=== PATIENT | male | born 1930 | race Caucasian/White ===

== ENCOUNTER → 2017-03-01 | Outpatient (REF) ==
[~2017-03-01] MED LIST: ASPIRIN E.C. 8181 MG PO; ATROVENT NASAL15 ML NS; CEFTIN500 MG PO; COLACE 100100 MG/CAP PO; CORDARONE200 MG PO; DULCOLAX10 MG RC; ELIQUIS 2.5 PO; FERROUS SU325 MG/TAB PO; FLEET ENEMA 13135 ML RC; KLOR-CON 1010 MEQ PO; LASIX40 MG PO; LEVOTHYROXIN0.025 MG PO; LEVOXYL0.125 MG PO; LORTAB 5/500 501 TAB PO; LOVASTATIN10 MG PO; MILK OF MA400 MG/51 PO; NATURE'S BLEND400 IU PO; NIACIN500 M3 PO; OCUVITE ADULT 51 SGL PO; OMEGA 31000 MG; OMNICEF 300MG300 MG PO; PACERONE200 MG PO; PRILOSEC 20MG20 MG PO; PROTONIX40 MG PO; STOOL SOFTENER100 M2 PO; TEMAZEPAM15 MG PO; VITAMIN C500 MG PO; ZETIA 10MG TAB10 MG PO; ZOFRAN4 M1 PO
== END ==
LOC: WSOH 10:50
DX: Z02.1 Encounter for pre-employment examination (principal)

== ENCOUNTER → 2017-03-04 | Outpatient (REF) | LOC: WSOH 14:54 | DX: Z02.1 Encounter for pre-employment examination (principal) ==

== ENCOUNTER → 2017-03-12 | Outpatient (REF) | LOC: WSOH 09:51 | DX: Z02.89 Encounter for other administrative examinations (principal) ==

== ENCOUNTER → 2017-04-24 | Outpatient (CLI) | payer MEDICARE | LOC: COL.RAD 09:41 | DX: I71.2 Thoracic aortic aneurysm, without rupture (principal); R91.1 Solitary pulmonary nodule | CPT/HCPCS: Q9967 ==

== ENCOUNTER → 2017-12-02 | Outpatient (REF) ==
[~2017-12-02] MED LIST changes: +B-121000 MCG PO; +COUMADIN 1010 MG/TAB PO; +COUMADIN 22.5 MG/TAB PO; +COUMADIN 5MG5 MG/TAB PO; +FLOMAX 0.40.4 MG/CAP PO; +FOLIC ACID 11 MG/TA1 PO; +GLUCOTROL10 MG PO; +JANTOVEN10 MG PO; +KRILL OIL 5001 EACH PO; +LASIX 20MG TABL20 MG PO; -LEVOXYL0.125 MG PO; +LEVOXYL0.15 MG PO; +ROXICODONE 55 MG/TAB PO; +THIAMINE 1100 MG/TAB PO; +TYLENOL 325MG325 MG PO; +VITAMIND3 5000 PO
[2017-12-02 08:32] LABS: MEAN CELL VOLUME 90 fl (80.0-100.0); MEAN CORPUSCULAR HGB CONC 32 g/dl (33.0-37.0); MEAN PLATELET VOLUME 9.9 fl (7.4-10.4); PLATELET COUNT 256 K/mm3 (130-400); RED BLOOD COUNT 2.79 M/mm3 (4.20-5.60); REDCELL DISTRIBUTION WIDTH-CV 16.7 % (11.5-14.5)
[2017-12-02 08:49] LABS: CREATININE, serum 0.55 mg/dL (0.66-1.25); POTASSIUM 3.8 mmol/L (3.4-5.0)
[2017-12-02 08:54] LABS: HEMATOCRIT 25.2 % (42.0-52.0); MEAN CORPUSCULAR HEMOGLOBIN 29 pg (27.0-31.0)
[2017-12-02 09:23] LABS: ANISOCYTOSIS 1+; BAND 11 % (0-10); EOSINOPHIL 1 % (0-4); LYMPHOCYTE 11 % (20.0-51.0); NEUTROPHILS 69 % (42.0-75.2); PLATELET ESTIMATE NORMAL (NORMAL); POLYCHROMASIA 1+
[2017-12-02 09:25] LABS: TOXIC GRANULATION PRESENT
== END ==
LOC: ZCOL.LAB 08:27
PROVIDERS: Internal Medicine
DX: Z01.89 Encounter for other specified special examinations (principal)

== ENCOUNTER → 2017-12-05 | Outpatient (CLI) | payer MEDICARE | LOC: COL.RAD 09:21 | DX: S72.402D Unspecified fracture of lower end of left femur, subsequent encounter for closed fracture with routine healing (principal); Z96.7 Presence of other bone and tendon implants ==

== ENCOUNTER → 2017-12-26 | Outpatient (REF) ==
[2017-12-26 02:43] LABS: COLLECTION METHOD CLEAN CATCH
[2017-12-26 02:46] LABS: BASO % 0.3 % (0.0-2.0); EOS # 0.1 (0.0-0.7); GRAN # 8.4 (1.4-6.5); GRAN % 73.8 % (42.2-75.2); HEMOGLOBIN 11.4 g/dl (13.5-18.0); LYMPH # 1.4 (1.2-3.4); LYMPH % 12.1 % (20.0-51.0); MEAN CELL VOLUME 91 fl (80.0-100.0); MEAN CORPUSCULAR HEMOGLOBIN 28 pg (27.0-31.0); MEAN CORPUSCULAR HGB CONC 31 g/dl (33.0-37.0); MEAN PLATELET VOLUME 10.8 fl (7.4-10.4); MONO # 1.4 (0.1-0.6); MONO % 12.3 % (1.7-9.3); PLATELET COUNT 169 K/mm3 (130-400); RED BLOOD COUNT 4.01 M/mm3 (4.20-5.60)
[2017-12-26 02:49] LABS: HEMATOCRIT 36.5 % (42.0-52.0)
[2017-12-26 02:55] LABS: ALBUMIN 2.9 gm/dL (3.5-5.0); BILIRUBIN,TOTAL 0.7 mg/dL (0.0-1.0); CALCIUM 8.7 mg/dL (8.4-10.2); CREATININE, serum 0.55 mg/dL (0.66-1.25); POTASSIUM 3.6 mmol/L (3.4-5.0); TOTAL PROTEIN 5.7 gm/dL (6.4-8.2)
[2017-12-26 03:06] LABS: MUCOUS Present /lpf; PH 5 (5-8); SQUAMOUS EPITHELIAL 0-2 /hpf; URINE APPEARANCE Hazy; URINE BACTERIA None Seen /hpf; URINE BILIRUBIN Negative (NEGATIVE); URINE BLOOD Negative (NEGATIVE); URINE CALCIUM OXALATE CRYSTAL Present /hpf; URINE COLOR Yellow; URINE GLUCOSE Negative (NEGATIVE); URINE KETONE Negative (NEGATIVE); URINE LEUKOCYTE ESTERASE Negative (NEGATIVE); URINE NITRATE Negative (NEGATIVE); URINE PROTEIN(semi-quant) 1+ (NEGATIVE); URINE UROBILINOGEN >=4.0 mg/dL (NEGATIVE)
== END ==
LOC: ZCOL.LAB 02:39
PROVIDERS: Internal Medicine
DX: M62.81 Muscle weakness (generalized) (principal); D64.9 Anemia, unspecified; R39.9 Unspecified symptoms and signs involving the genitourinary system

== ENCOUNTER → 2018-01-01 | Outpatient (CLI) | payer MEDICARE | LOC: COL.RAD 11:56 | DX: M97.12XA Periprosthetic fracture around internal prosthetic left knee joint, initial encounter (principal); J18.9 Pneumonia, unspecified organism; Z98.890 Other specified postprocedural states; Z96.651 Presence of right artificial knee joint; Z96.89 Presence of other specified functional implants ==

== ENCOUNTER → 2018-02-06 | Outpatient (CLI) | payer MEDICARE | LOC: COL.RAD 11:56 | DX: Z09 Encounter for follow-up examination after completed treatment for conditions other than malignant neoplasm (principal); M97.12XD Periprosthetic fracture around internal prosthetic left knee joint, subsequent encounter; Z98.890 Other specified postprocedural states ==

== ENCOUNTER → 2018-03-24 | Outpatient (CLI) | payer MEDICARE | LOC: COL.RAD 10:10 | DX: S72.492D Other fracture of lower end of left femur, subsequent encounter for closed fracture with routine healing (principal); Z98.890 Other specified postprocedural states ==

== ENCOUNTER → 2018-04-21 | Outpatient (CLI) | payer MEDICARE ==
[2018-04-21 09:47] LABS: BASO # 0.1 (0.0-0.2); BASO % 0.7 % (0.0-2.0); EOS # 0.3 (0.0-0.7); GRAN # 4.5 (1.4-6.5); GRAN % 66.4 % (42.2-75.2); HEMATOCRIT 37.2 % (42.0-52.0); HEMOGLOBIN 11.9 g/dl (13.5-18.0); LYMPH # 1.2 (1.2-3.4); MEAN CELL VOLUME 87 fl (80.0-100.0); MEAN CORPUSCULAR HEMOGLOBIN 28 pg (27.0-31.0); MEAN CORPUSCULAR HGB CONC 32 g/dl (33.0-37.0); MEAN PLATELET VOLUME 10.9 fl (7.4-10.4); MONO # 0.7 (0.1-0.6); MONO % 10.6 % (1.7-9.3); PLATELET COUNT 161 K/mm3 (130-400); RED BLOOD COUNT 4.26 M/mm3 (4.20-5.60); REDCELL DISTRIBUTION WIDTH-CV 14.7 % (11.5-14.5)
[2018-04-21 10:25] LABS: ALBUMIN 3.5 gm/dL (3.5-5.0); BILIRUBIN,TOTAL 0.7 mg/dL (0.0-1.0); CHOLESTEROL RISK RATIO 2.9; CREATININE, serum 0.6 mg/dL (0.66-1.25); POTASSIUM 3.1 mmol/L (3.4-5.0); TOTAL PROTEIN 6.5 gm/dL (6.4-8.2)
[2018-04-21 11:43] LABS: THYROID STIMULATING HORMONE 4.72 uIU/mL (0.465-4.680)
== END ==
LOC: ZCOL.LAB 09:39
PROVIDERS: Internal Medicine
DX: E11.59 Type 2 diabetes mellitus with other circulatory complications (principal); E03.9 Hypothyroidism, unspecified; E78.5 Hyperlipidemia, unspecified

== ENCOUNTER → 2018-05-01 | Outpatient (REF) | LOC: ZCOL.LAB 15:09 | DX: Z01.89 Encounter for other specified special examinations (principal) ==

== ENCOUNTER → 2018-05-12 | Outpatient (CLI) | payer MEDICARE ==
[2018-05-12 12:02] LABS: CALCIUM 9.5 mg/dL (8.4-10.2); CREATININE, serum 0.89 mg/dL (0.66-1.25)
== END ==
LOC: ZCOL.LAB 11:37
PROVIDERS: Internal Medicine
DX: E87.6 Hypokalemia (principal)

== ENCOUNTER → 2018-05-19 | Outpatient (CLI) | payer MEDICARE | LOC: COL.RAD 14:47 | DX: M97.8XXA Periprosthetic fracture around other internal prosthetic joint, initial encounter (principal); Z98.890 Other specified postprocedural states ==

== ENCOUNTER → 2018-06-26 | Outpatient (CLI) | payer MEDICARE | LOC: COL.RAD 12:31 | DX: M97.8XXD Periprosthetic fracture around other internal prosthetic joint, subsequent encounter (principal); Z96.642 Presence of left artificial hip joint ==

== ENCOUNTER 2018-07-04 16:47 | Inpatient (IN) | payer MEDICARE ==
[2018-07-04] VITALS (149 sets, daily range): BP systolic 118–143; BP diastolic 62–97; PULSE 84–127; TEMP 98–98.2; O2SAT 89–95
[~2018-07-04] VITALS: Ht 190.5 cm; Wt 126.7 kg
[~2018-07-04 16:47] MED LIST changes: -COUMADIN4 MG PO; -DESYREL 50MG50 MG PO; -FISH OIL 1000MG1 CAP PO; -K-DUR20 MEQ PO; -MELATONIN5 M1 PO; -MIRALAX119G PO; -OCUVITE1 TA1 PO; -TYLENOL 500MG500 MG PO; -ZOLOFT 50MG50 MG PO
[2018-07-04 17:56] LABS: INR 2.5 (0.8-3.0); PROTHROMBIN TIME 27.9 SECONDS (9.7-12.8)
[2018-07-04 17:59] LABS: PARTIAL THROMBOPLASTIN TIME 37.7 SECONDS (26.0-37.0)
[2018-07-04 18:02] LABS: ALBUMIN 3.5 gm/dL (3.5-5.0); BILIRUBIN,TOTAL 0.9 mg/dL (0.0-1.0); CALCIUM 8.9 mg/dL (8.4-10.2); CREATININE, serum 0.7 mg/dL (0.66-1.25); POTASSIUM 4.3 mmol/L (3.4-5.0); TOTAL PROTEIN 6.7 gm/dL (6.4-8.2)
[2018-07-04 18:49] LABS: COLLECTION METHOD CATHETER
[2018-07-04 19:08] LABS: MUCOUS Present /lpf; PH 5 (5-8); SQUAMOUS EPITHELIAL 0-2 /hpf; URINE APPEARANCE Cloudy; URINE BACTERIA Rare /hpf; URINE BILIRUBIN Negative (NEGATIVE); URINE BLOOD 1+ (NEGATIVE); URINE COLOR Amber; URINE GLUCOSE Negative (NEGATIVE); URINE KETONE Negative (NEGATIVE); URINE LEUKOCYTE ESTERASE 3+ (NEGATIVE); URINE NITRATE Positive (NEGATIVE); URINE PROTEIN(semi-quant) 2+ (NEGATIVE); URINE UROBILINOGEN >=4.0 mg/dL (NEGATIVE)
[2018-07-04] MEDS ORDERED: MIRALAX119G PO (19:56)
[2018-07-04] MEDS ORDERED: MELATONIN5 M1 PO (19:58)
[2018-07-04] MEDS ORDERED: OCUVITE ADULT 51 SGL PO (19:59)
[2018-07-04] MEDS ORDERED: ZOLOFT 50MG50 MG PO (20:01)
[2018-07-04] MEDS ORDERED: K-DUR20 MEQ PO (20:01)
[2018-07-04] MEDS ORDERED: DESYREL 50MG50 MG PO (20:02)
--- NOTE | 2018-07-04 20:53 | NUR ---
Patient arrived to ICU room 7 via MARCO Zacarias RN. Patient transported from bed to bed with assistance from staff. Patient unable to communicate effectively. out in waiting room, will assume care of patient at this time.
[2018-07-04] MEDS ORDERED: COUMADIN4 MG PO (22:22)
[2018-07-04] MEDS ORDERED: OCUVITE1 TA1 PO (22:30)
[2018-07-04] MEDS ORDERED: FISH OIL 1000MG1 CAP PO (22:31)
[2018-07-04] MEDS ORDERED: TYLENOL 500MG500 MG PO (22:33)
[2018-07-05] VITALS (313 sets, daily range): BP systolic 102–141; BP diastolic 49–72; PULSE 66–87; TEMP 97.6–99.1; O2SAT 56–100
[2018-07-05 01:02] LABS: TROPONIN-I 0.019 ng/mL (0.000-0.034)
[2018-07-05 01:21] LABS: THYROID STIMULATING HORMONE 4.94 uIU/mL (0.465-4.680)
--- NOTE | 2018-07-05 01:25 | NUR ---
Patient appears to be in pain, does have some discomfort in left knee. Medication giving shortly after.
--- NOTE | 2018-07-05 03:38 | NUR ---
WHEN ASKING WHETHER THEY SLEEP WITH A CPAP OR BIPAP, PT WAS CONFUSED AND UNABLE TO ANSWER. ASKED PT MULTIPLE TIMES IN DIFFERENT WAYS AND WAS STILL CONFUSED AND UNABLE TO ANSWER. THEREFORE, PT WAS PLACED ON 3 LPM OM DUE TO DROP IN 02 SATS DURING DEEP SLEEP. WILL CONTINUE TO MONITOR AND ASK FAMILY/PT TOMORROW DURING DAY WHAT THEY WEAR AT NIGHT AND WHETHER THEY WILL WANT TO WEAR WHILE IN HOSPITAL. PT IS DOING FINE AT THIS TIME WITH NO DISTRESS NOTED.
[2018-07-05 05:15] LABS: BASO % 0.1 % (0.0-2.0); EOS % 0.3 % (0-4.0); GRAN # 8.6 (1.4-6.5); GRAN % 75.5 % (42.2-75.2); LYMPH # 1.2 (1.2-3.4); LYMPH % 10.3 % (20.0-51.0); MEAN CELL VOLUME 87 fl (80.0-100.0); MEAN CORPUSCULAR HGB CONC 32 g/dl (33.0-37.0); MEAN PLATELET VOLUME 9.7 fl (7.4-10.4); MONO # 1.5 (0.1-0.6); MONO % 12.8 % (1.7-9.3); PLATELET COUNT 143 K/mm3 (130-400); RED BLOOD COUNT 3.19 M/mm3 (4.20-5.60); REDCELL DISTRIBUTION WIDTH-CV 15.9 % (11.5-14.5)
[2018-07-05 05:18] LABS: HEMATOCRIT 27.8 % (42.0-52.0); HEMOGLOBIN 8.8 g/dl (13.5-18.0); MEAN CORPUSCULAR HEMOGLOBIN 28 pg (27.0-31.0)
[2018-07-05 05:27] LABS: ALBUMIN 2.9 gm/dL (3.5-5.0); BILIRUBIN,TOTAL 0.9 mg/dL (0.0-1.0); CALCIUM 8.6 mg/dL (8.4-10.2); CREATININE, serum 0.65 mg/dL (0.66-1.25); INR 2.2 (0.8-3.0); POTASSIUM 3.7 mmol/L (3.4-5.0); PROTHROMBIN TIME 24.8 SECONDS (9.7-12.8); TOTAL PROTEIN 5.9 gm/dL (6.4-8.2)
--- NOTE | 2018-07-05 07:00 | NUR ---
BEDSIDE REPORT RECEIVED FROM REMEDIOS WATTS
--- NOTE | 2018-07-05 09:00 | NUR ---
DR. ISSA HERE TO SEE PATIENT.
--- NOTE | 2018-07-05 10:57 | NUR ---
Pt arrived to room 354 via bed with REMEDIOS Gonsales. Pt and oriented to room and call light system. Pt is resting quietly in the bed and he denies further need. Call light within reach, will continue to monitor.
--- NOTE | 2018-07-05 11:05 | NUR ---
REPORT CALLED TO REMEDIOS ANGEL. PATIENT TAKEN TO ROOM 354. NEW IV PLACED IN LEFT FOREARM. SKIN ISSUES EVALUATED TOGETHER AT BEDSIDE. CARE TURNED OVER AT THIS TIME.
--- NOTE | 2018-07-05 17:43 | NUR ---
Pt pulled out canseco catheter at this time with the balloon intact. Dr. Gaines notified.
--- NOTE | 2018-07-05 18:36 | NUR ---
Since arriving to the floor the pt has been resting on and off. Pulled out his canseco with the balloon intact. has remained at the bedside; all questions answered. Pt is sitting up in the bed eating his dinner at this time and he denies further needs. Call light within reach.
--- NOTE | 2018-07-05 18:59 | NUR ---
Report given to REMEDIOS Morales.
--- NOTE | 2018-07-05 21:09 | NUR ---
Resting in bed. Assessment complete. Alert, partially orientated. Lungs clear. Bilateral lower extremity edema +1. Left heel abrasion, covered with bandaide. Left knee erythema present. Left flank large bruise. Denies pain. Denies other needs at this time. Call light in reach. Bed alarm in place. Will monitor.
[2018-07-06] VITALS (7 sets, daily range): BP systolic 95–159; BP diastolic 44–73; PULSE 58–74; TEMP 97.6–98.8
--- NOTE | 2018-07-06 00:54 | NUR ---
Resting in bed asleep. Call light in reach.
--- NOTE | 2018-07-06 00:57 | NUR ---
NO CPAP/BIPAP IN ROOM. PT FAMILY DID NOT BRING IN HOME UNIT. PT IS STILL CONFUSED AND NOT ABLE TO WEAR CPAP/BIPAP AT THIS TIME.
--- NOTE | 2018-07-06 04:29 | NUR ---
Resting in bed. Denies needs. Call light in reach.
--- NOTE | 2018-07-06 06:21 | NUR ---
Had uneventful night. Resting in bed this AM. Denies needs at this time. Call light in reach.
--- NOTE | 2018-07-06 08:30 | NUR ---
pT is alert, oriented to time and self but not place. Introduced the IV pole as his Maria C. Physical assessment completed. IV to LFA free of redness/swelling. Left knee is warm to touch, slightly reddened, outline is marked with marker. pt denies SOB, pain, femains afebrile. no furtehr needs, call light in reach
[2018-07-06 08:54] LABS: BASO % 0.3 % (0.0-2.0); EOS # 0.1 (0.0-0.7); GRAN # 8.6 (1.4-6.5); GRAN % 78.1 % (42.2-75.2); MEAN CELL VOLUME 88 fl (80.0-100.0); MEAN CORPUSCULAR HGB CONC 32 g/dl (33.0-37.0); MEAN PLATELET VOLUME 10.6 fl (7.4-10.4); MONO # 1.2 (0.1-0.6); MONO % 10.6 % (1.7-9.3); PLATELET COUNT 168 K/mm3 (130-400); RED BLOOD COUNT 3.27 M/mm3 (4.20-5.60); REDCELL DISTRIBUTION WIDTH-CV 15.8 % (11.5-14.5)
[2018-07-06 08:57] LABS: HEMATOCRIT 28.9 % (42.0-52.0); HEMOGLOBIN 9.1 g/dl (13.5-18.0); MEAN CORPUSCULAR HEMOGLOBIN 28 pg (27.0-31.0)
[2018-07-06 09:00] LABS: INR 1.7 (0.8-3.0); PROTHROMBIN TIME 19.5 SECONDS (9.7-12.8)
[2018-07-06 09:05] LABS: CALCIUM 8.8 mg/dL (8.4-10.2); CREATININE, serum 0.59 mg/dL (0.66-1.25); POTASSIUM 3.4 mmol/L (3.4-5.0)
[2018-07-06 09:20] LABS: C-REACTIVE PROTEIN 19.1 mg/dL (0.0-0.9)
--- NOTE | 2018-07-06 09:30 | NUR ---
This RN at bedside when Dr Dawson performed aspiration of fluid in knee. This RN provided tylenol per request after. Call light in reach, now at bedside
[2018-07-06 09:32] LABS: ERYTHROCYTE SEDIMENTATION RATE 52 mm/hr (0-30)
[2018-07-06 11:15] LABS: SYNOVIAL FL. MONONUCLEAR 4.4 % (0-75); SYNOVIAL FLUID APPEARANCE TURBID; SYNOVIAL FLUID COLOR PINK; SYNOVIAL FLUID RBC 47000 /mm3 (0-0); SYNOVIAL FLUID WBC 117894 /mm3 (200-600)
[2018-07-06 12:09] LABS: PARTIAL THROMBOPLASTIN TIME 33.2 SECONDS (26.0-37.0)
--- NOTE | 2018-07-06 16:45 | NUR ---
pT had uneventful shift. vitals remain stable, pt in Afib on tele. pt had no further complaints of pain, lt knee has no icnrease in redness or swelling. IV site free of redness, swelling, fluids infusing. This RN ordered dinner for later per pt request. Call light in reach
--- NOTE | 2018-07-06 17:39 | NUR ---
pT HAD uneventful day, vitals stable with pt remaining in Afib, heparin drip running, IV s redness/swelling at site. Pt voided adn received linen change. Pt remained alert and pleasantly disoriented, cooperative through day. No c/o Lt knee pain. Call light in reach, no further needs
--- NOTE | 2018-07-06 18:55 | NUR ---
rEPORT GIVEN TO Darren WHITTAKER, pt sitting up, ate dinner, at bedside, denies needs, call ligth in reach
--- NOTE | 2018-07-06 20:13 | NUR ---
Pt resting in bed watching TV, shift assessments complete, left Pt call light in reach, bed in lowest position.
[2018-07-06 20:33] LABS: INR 1.7 (0.8-3.0); PROTHROMBIN TIME 19.4 SECONDS (9.7-12.8)
[2018-07-07 00:11] VITALS: BP 131/71; PULSE 71; TEMP 98.7
[2018-07-07 01:09] LABS: INR 1.8 (0.8-3.0); PROTHROMBIN TIME 19.9 SECONDS (9.7-12.8)
[2018-07-07 03:51] VITALS: BP 135/66; PULSE 79; TEMP 97.4
--- NOTE | 2018-07-07 05:38 | NUR ---
Pt did not sleep much during the night, he did have several instances of incontinence during the night. no C/O pain during the night, Vs have been stable.
[2018-07-07 07:42] VITALS: BP 119/63; PULSE 76; TEMP 97.9
[2018-07-07 07:58] LABS: BASO % 0.3 % (0.0-2.0); EOS # 0.3 (0.0-0.7); EOS % 2.5 % (0-4.0); GRAN # 7.5 (1.4-6.5); GRAN % 73.9 % (42.2-75.2); LYMPH # 1.2 (1.2-3.4); MEAN CELL VOLUME 88 fl (80.0-100.0); MEAN CORPUSCULAR HGB CONC 31 g/dl (33.0-37.0); MEAN PLATELET VOLUME 10.6 fl (7.4-10.4); MONO % 10.1 % (1.7-9.3); PLATELET COUNT 173 K/mm3 (130-400); RED BLOOD COUNT 3.32 M/mm3 (4.20-5.60); REDCELL DISTRIBUTION WIDTH-CV 15.5 % (11.5-14.5)
[2018-07-07 08:02] LABS: HEMATOCRIT 29.1 % (42.0-52.0); HEMOGLOBIN 9.1 g/dl (13.5-18.0); MEAN CORPUSCULAR HEMOGLOBIN 27 pg (27.0-31.0)
[2018-07-07 08:07] LABS: CALCIUM 8.7 mg/dL (8.4-10.2); CREATININE, serum 0.58 mg/dL (0.66-1.25); POTASSIUM 3.5 mmol/L (3.4-5.0)
[2018-07-07 08:21] LABS: INR 1.8 (0.8-3.0)
--- NOTE | 2018-07-07 10:20 | NUR ---
pT IS alert, pleasant, disoriented to place and situation. Denies pain and SOB. when he moves left knee he will wince, but he refused additional tylenol. Physical assessment completed. Lt knee is warm to touch but very little redness of the skin. Pt afebrile, vitasl stable, remains in Afib rate controlled. [facility], continuing to monitor
[2018-07-07 12:21] VITALS: BP 110/53; PULSE 43; TEMP 98.3
--- NOTE | 2018-07-07 14:12 | NUR ---
JUDE contacted the patient's , Juliet, to discuss discharge plan. The patient resides at [facility] for long-term care. The patient's reports that she would like for the patient to return back there upon discharge. JUDE has contacted and faxed updates to Lizeth at [facility]. JUDE to continue to follow.
--- NOTE | 2018-07-07 14:15 | NUR ---
PAUSED HEPARIN PER LAB REQUEST
[2018-07-07 15:37] VITALS: BP 125/77; PULSE 75; TEMP 97.8
--- NOTE | 2018-07-07 18:41 | NUR ---
Report given to Carmen RN, pt resting, lab in room
[2018-07-07 19:53] VITALS: BP 132/70; PULSE 76; TEMP 97.6
--- NOTE | 2018-07-07 20:48 | NUR ---
Resting in bed. Assessment complete. Lungs clear. Alert and partially orientated to place and self. Bilateral lower leg edema present +2. Denies pain at this time. Ramon wrap present to left knee. Area warm to touch, denies pain when touched. Denies needs. Will monitor.
[2018-07-08 00:16] VITALS: BP 121/59; PULSE 62; TEMP 98.1
--- NOTE | 2018-07-08 00:45 | NUR ---
Resting in bed. Incontinent of urine. Care provided. Denies needs. Call light in reach.
[2018-07-08 03:59] VITALS: BP 130/69; PULSE 65; TEMP 98.1
--- NOTE | 2018-07-08 04:03 | NUR ---
Patient noted to have wheezing on expiration. Oxygen saturation 92-94% on room air. Reports some difficulty breathing. Obtained order for PRN breathing treatment from [facility]. Respiratory notifed and will be in to see patient. Patient denies other needs. Call light in reach.
--- NOTE | 2018-07-08 04:10 | NUR ---
Resting in bed. Incontinent of urine. Care provided and repositioned. Denies needs. Call light in reach.
--- NOTE | 2018-07-08 06:13 | NUR ---
Uneventful night. Resting in bed asleep. Call light in reach. Bed alarm in place.
[2018-07-08 07:29] LABS: BASO % 0.4 % (0.0-2.0); EOS # 0.3 (0.0-0.7); EOS % 3.1 % (0-4.0); GRAN # 5.8 (1.4-6.5); GRAN % 70.4 % (42.2-75.2); LYMPH # 1.1 (1.2-3.4); LYMPH % 13.6 % (20.0-51.0); MEAN CELL VOLUME 87 fl (80.0-100.0); MEAN CORPUSCULAR HGB CONC 32 g/dl (33.0-37.0); MEAN PLATELET VOLUME 10.7 fl (7.4-10.4); MONO # 0.9 (0.1-0.6); MONO % 10.9 % (1.7-9.3); PLATELET COUNT 186 K/mm3 (130-400); RED BLOOD COUNT 3.12 M/mm3 (4.20-5.60); REDCELL DISTRIBUTION WIDTH-CV 15.4 % (11.5-14.5)
[2018-07-08 07:33] LABS: INR 1.4 (0.8-3.0); PROTHROMBIN TIME 16.1 SECONDS (9.7-12.8)
[2018-07-08 07:35] VITALS: BP 139/65; PULSE 59; TEMP 97.6
[2018-07-08 07:35] LABS: HEMATOCRIT 27.1 % (42.0-52.0); HEMOGLOBIN 8.6 g/dl (13.5-18.0); MEAN CORPUSCULAR HEMOGLOBIN 28 pg (27.0-31.0)
[2018-07-08 07:36] LABS: CALCIUM 8.3 mg/dL (8.4-10.2); CREATININE, serum 0.62 mg/dL (0.66-1.25); POTASSIUM 3.3 mmol/L (3.4-5.0)
--- NOTE | 2018-07-08 08:25 | NUR ---
PT is A+Ox3, pleasant, denies pain but winces with movement of his left knee. Meds provided, physical assessmetn completed. Lt knee is moderately swollen, warm to touch, not significantly reddened, elevated on pillow. IV to LFA s redness/swelling at site. Call light inr each, bed low, will monitor
[2018-07-08 11:34] VITALS: BP 122/70; PULSE 69; TEMP 97.6
[2018-07-08 14:49] VITALS: BP 125/59; PULSE 87; TEMP 98
--- NOTE | 2018-07-08 18:39 | NUR ---
rEPORT GIVE TO Carmen WHITTAKER, pt resting, this Rn with aid just cleaned his wet breif, dinner is ordered on its way. No furtehr eneds
--- NOTE | 2018-07-08 19:18 | NUR ---
pt had uneventful day, pain meds provided once per orders, knee elevated through day. Pt repositioned and changed of wet breif through day, no skin breakdwon present. Heparin infusing per orders, both IV's to LFA s redness/swelling. Fluids infusing. Vitals stable, pt in afib on tele, asymptomatic. Call light in reach, bed low.
--- NOTE | 2018-07-08 19:23 | NUR ---
Report received from REMEDIOS Barahona. Resting in bed. Denies needs. Call light in reach.
--- NOTE | 2018-07-08 19:35 | NUR ---
Resting in bed. Assessment complete. Orientated to self. Assessment complete. Lungs clear. Bilateral lower leg edema +2 present. Denies pain at this time. Denies needs. Dinner set up for patient. Call light in reach. Bed alarm in place.
[2018-07-08 19:37] VITALS: BP 149/68; PULSE 84; TEMP 98.4
--- NOTE | 2018-07-08 21:45 | NUR ---
Repositioned patient. Incontinent of urine. Care provided. Confuse present on time of surgery. Concerned surgery is taking place at midnight. Reorientated patient. Denies needs. Call light in reach.
[2018-07-09] VITALS (11 sets, daily range): BP systolic 113–169; BP diastolic 63–95; PULSE 68–128; TEMP 97.7–98.6
--- NOTE | 2018-07-09 00:10 | NUR ---
Resting in bed. Repositioned. Incontinent care provided. Call light in reach.
--- NOTE | 2018-07-09 02:56 | NUR ---
Resting in bed. Repositioned. Denies needs. Call light in reach.
--- NOTE | 2018-07-09 05:02 | NUR ---
Heparin drip stopped as ordered prior to surgery.
--- NOTE | 2018-07-09 05:26 | NUR ---
Repositioned. Incontinent of urine. Denies needs. Call light in reach.
[2018-07-09 07:21] LABS: INR 1.2 (0.8-3.0); PROTHROMBIN TIME 14.1 SECONDS (9.7-12.8)
[2018-07-09 07:28] LABS: CALCIUM 8.3 mg/dL (8.4-10.2); CREATININE, serum 0.54 mg/dL (0.66-1.25); MEAN CELL VOLUME 88 fl (80.0-100.0); MEAN CORPUSCULAR HGB CONC 32 g/dl (33.0-37.0); MEAN PLATELET VOLUME 10.9 fl (7.4-10.4); PLATELET COUNT 229 K/mm3 (130-400); POTASSIUM 3.5 mmol/L (3.4-5.0); RED BLOOD COUNT 3.27 M/mm3 (4.20-5.60); REDCELL DISTRIBUTION WIDTH-CV 15.6 % (11.5-14.5)
[2018-07-09 07:48] LABS: HEMATOCRIT 28.6 % (42.0-52.0); MEAN CORPUSCULAR HEMOGLOBIN 28 pg (27.0-31.0)
--- NOTE | 2018-07-09 09:42 | NUR ---
Pt assessment complete. Pt laying in bed upon entry, he is A/O to person only. Reoriented easily. Pt reports pain to L knee with movement, knee slightly swollen, elevated on pillow. Pt incontinent of urine, pericare provided. Pt took am pills without complications. Pt aware that he will be having a procedure at noon. Isolation precautions followed, call light in reach, bed alarm on. Will continue to monitor.
--- NOTE | 2018-07-09 10:33 | NUR ---
JUDE attended clinical rounds. The patient is to have surgery today, 07/09. JUDE has contacted and faxed updates to Afsaneh at [facility] and will continue to follow.
--- NOTE | 2018-07-09 10:51 | NUR ---
Preop fluids hung, at bedside. POC discussed with both patient and . Pt's breathing is audibly wheezy, request to RT for breathing treatment.
--- NOTE | 2018-07-09 12:17 | NUR ---
Report called to Anesthesia at this time, Sourav in to wheel pt to OR.
--- NOTE | 2018-07-09 12:21 | NUR ---
Report called to REMEDIOS Vasquez on surgical. Pt will transfer to room 325 after procedure.
[2018-07-09 13:17] LABS: BAND 8 % (0-10); EOSINOPHIL 3 % (0-4); LYMPHOCYTE 18 % (20.0-51.0); NEUTROPHILS 65 % (42.0-75.2); PLATELET ESTIMATE NORMAL (NORMAL)
[2018-07-09 13:18] LABS: HYPOCHROMIA 3+
[2018-07-09 13:19] LABS: ANISOCYTOSIS 1+; POLYCHROMASIA 1+
--- NOTE | 2018-07-09 16:22 | NUR ---
PT TO ROOM 325 PER BED WITH ALISA WHITTAKER REPORTING @ BEDSIDE. PT TURNED TO SIDE DRAW SHEET REMOVED. LUNGS SOUNDS COARSE. BOWEL SOUNDS ACTIVE. DRESSING TO LEFT KNEE CDI WITH OCCLUSIVE ISABELL WRAP OVER INCISION SITE. SCD PLACED ON NON OPERATIVE LEG.
--- NOTE | 2018-07-09 16:38 | NUR ---
PT UNABLE TO MAINTAIN SATS ABOVE 90 % PLACED ON 4L P/NC STABLE AT 97%
[2018-07-09 17:37] LABS: PARTIAL THROMBOPLASTIN TIME 28.9 SECONDS (26.0-37.0)
--- NOTE | 2018-07-09 18:34 | NUR ---
SPOKE WITH NATHAN PHARMACIST AND WILL RUN THE VANC FIRST THEN START HEPARIN DRIP WHEN COMPLETE.
--- NOTE | 2018-07-09 19:14 | NUR ---
REPORT TO JOAN WHITTAKER
--- NOTE | 2018-07-09 21:00 | NUR ---
Pt. laying in bed with eyes closed, respirations equal and unlabored. Pt. arouses to verbal stimuli. Pt. is alert and confused. Shift assessment complete. IV to lt. forearm patent. IV fluids infusing per orders. Pt. denies pain or other needs, call light within reach, bed alarm on.
[2018-07-10 00:07] VITALS: BP 131/68; PULSE 102; TEMP 99.5
[2018-07-10 04:22] VITALS: BP 131/60; PULSE 102; TEMP 99.6
[2018-07-10 05:28] LABS: INR 1.3 (0.8-3.0); PROTHROMBIN TIME 15.3 SECONDS (9.7-12.8)
[2018-07-10 05:34] LABS: CALCIUM 8.2 mg/dL (8.4-10.2); CREATININE, serum 0.58 mg/dL (0.66-1.25); POTASSIUM 3.3 mmol/L (3.4-5.0)
--- NOTE | 2018-07-10 06:32 | NUR ---
Pt. slept well through the night. Pt. remains alert and confused. Pt. denies pain. Call light within reach, bed alarm on.
[2018-07-10 07:51] VITALS: BP 118/82; PULSE 75; TEMP 97.5
--- NOTE | 2018-07-10 08:00 | NUR ---
PATIENT IS DROWSY THIS MORNING, BUT AROUSES EASILY TO NAME. PATIENT IS A&O TO SELF ONLY. IRREGULAR HEART RHYTHM NOTED, OTHERWISE VSS. TELE IN PLACE. BOWEL SOUNDS ACTIVE ALL FOUR QUADRANTS. PATIENT TOLERATING FOOD & LIQUIDS WITHOUT ANY COMPLAINTS OF N/V. DYSPNEA WITH EXERTION NOTED. ALL LUNG MARTINEZ DIMINISHED UPON AUSCULTATION. PATIENT HAS A PRODUCTIVE COUGH WITH SCANT AMOUNTS OF STICKY CLEAR SPUTUM. POSITIVE PEDAL PULSES EQUAL BILATERALLY. 1+ PITTING-EDEMA TO BLE NOTED. SCD'S TO RLE. DRESSING AND ISABELL WRAP TO LLE IS CD&I. NON-PITTING EDEMA TO BUE. MARSHALL CATHETER TO DEPENDENT DRAINAGE WITH MODERATE AMOUNTS OF CLOUDY WINTER URINE PRESENT IN MARSHALL BAG. IV FLUIDS INFUSING TO LEFT FOREARM IV VIA PUMP. CALL LIGHT WITHIN REACH. BREAKFAST TRAY ORDERED FOR PATIENT. NO OTHER NEEDS AT THIS TIME.
--- NOTE | 2018-07-10 11:04 | NUR ---
Patient is going to need 6 weeks of IV antibiotics. JUDE called Afsaneh at [facility] and updated on patients status.
--- NOTE | 2018-07-10 12:00 | NUR ---
INSULIN HELD. PATIENT BLOOD SUGAR TAKEN AFTER MEAL.
[2018-07-10 12:37] VITALS: BP 127/65; PULSE 75; TEMP 97.9
[2018-07-10 16:00] VITALS: BP 1298/72; PULSE 86; TEMP 98
--- NOTE | 2018-07-10 19:42 | NUR ---
REPORT GIVEN TO REMEDIOS CHRISTIANSON.
--- NOTE | 2018-07-10 20:09 | NUR ---
Pt resting in bed napping, shift assessments complete W/O significant findings, no C/O pain at this time, left Pt bed in lowest position, call light in reach.
[2018-07-10 23:19] VITALS: BP 144/61; PULSE 71; TEMP 98.2
[2018-07-11 03:24] VITALS: BP 158/66; PULSE 88; TEMP 98.5
--- NOTE | 2018-07-11 05:16 | NUR ---
Pt slept well during the night, he has no C/O pain during the night, he did use his BIPAP while sleeping, VS have been stable.
[2018-07-11 05:17] LABS: MEAN CELL VOLUME 86 fl (80.0-100.0); MEAN CORPUSCULAR HGB CONC 32 g/dl (33.0-37.0); MEAN PLATELET VOLUME 10.2 fl (7.4-10.4); PLATELET COUNT 206 K/mm3 (130-400); RED BLOOD COUNT 3.03 M/mm3 (4.20-5.60); REDCELL DISTRIBUTION WIDTH-CV 15.8 % (11.5-14.5)
[2018-07-11 05:18] LABS: HEMATOCRIT 25.9 % (42.0-52.0); HEMOGLOBIN 8.4 g/dl (13.5-18.0); MEAN CORPUSCULAR HEMOGLOBIN 28 pg (27.0-31.0)
[2018-07-11 05:21] LABS: INR 1.4 (0.8-3.0); PROTHROMBIN TIME 16.4 SECONDS (9.7-12.8)
[2018-07-11 05:26] LABS: CALCIUM 8.5 mg/dL (8.4-10.2); CREATININE, serum 0.57 mg/dL (0.66-1.25); POTASSIUM 3.5 mmol/L (3.4-5.0)
[2018-07-11 07:07] VITALS: BP 139/69; PULSE 81; TEMP 98.7
--- NOTE | 2018-07-11 09:30 | NUR ---
PICC intact right upper arm. With sterile technique right upper arm PICC dressing change done with insertion site cleansed with ChloraPrep 1, cause removed with no drainage noted, skin prep, StatLock, and Tegaderm applied. With her symptoms of IV complications noted. Patient addressed no concerns. Infusion complete and lumen flushed with 10 mL normal saline without resistance or difficulty with good blood return noted.
--- NOTE | 2018-07-11 09:49 | NUR ---
JUDE met with patient during clinical rounding. Patient could possibly dc today to [facility] however the dr would like a few more tests done. JUDE updated Sondra at [facility] about patients status and IV antibiotics. JUDE will continue to follow.
[2018-07-11 11:27] VITALS: BP 136/66; PULSE 84; TEMP 98.4
[2018-07-11 16:07] VITALS: BP 130/63; PULSE 67; TEMP 98
[2018-07-11 18:55] VITALS: BP 136/67; PULSE 92; TEMP 98.2
--- NOTE | 2018-07-11 19:16 | NUR ---
REPORT GIVEN TO KRISTINE GRAY.
--- NOTE | 2018-07-11 20:00 | NUR ---
Patient resting in bed at this time. Patient is alert and oriented to self. Patient is confused and requires reorientation periodically, reorients easily. Rick catheter in place draining clear yellow urine. Bulky dressing to left leg in place, dressing appears CDI. CMS intact in operative extremity. Telemetry in place per order. Patient denies pain or further needs, call light within reach.
[2018-07-12 04:19] VITALS: BP 94/74; PULSE 71; TEMP 98.2
--- NOTE | 2018-07-12 05:15 | NUR ---
Patient rested well overnight. Rick catheter remians in place draining clear yellow urine. Patient has continued to deny pain and has given no indication of pain. Call light within reach, bed alarm on.
[2018-07-12 06:10] LABS: INR 1.4 (0.8-3.0); PROTHROMBIN TIME 15.8 SECONDS (9.7-12.8)
[2018-07-12 06:14] LABS: CALCIUM 8.5 mg/dL (8.4-10.2); CREATININE, serum 0.64 mg/dL (0.66-1.25); MAGNESIUM 2.1 mg/dL (1.6-2.3); POTASSIUM 3.5 mmol/L (3.4-5.0)
[2018-07-12 08:30] VITALS: BP 155/87; PULSE 75; TEMP 98
[2018-07-12] MEDS ORDERED: IPRATROPIUM BROM3 M1 IH (11:18)
[2018-07-12] MEDS ORDERED: VANCOCIN HCL1 GM IV (11:18)
[2018-07-12] MEDS ORDERED: COUMADIN 5MG5 MG/TAB PO (11:20)
[2018-07-12] MEDS ORDERED: LOPRESSOR 225 MG/TAB PO (11:23)
[2018-07-12] MEDS ORDERED: K-DUR20 MEQ PO (11:24)
[2018-07-12] MEDS ORDERED: NORCO 325 MG-51 TAB PO (11:26)
[2018-07-12] MEDS ORDERED: NOVLOG SQ (11:30)
--- NOTE | 2018-07-12 11:44 | NUR ---
Update: DC faxed to [facility]. Transport scheduled for 02:30 pm. Relayed info to nursing staff. Nothing Follows
[2018-07-12 12:23] VITALS: BP 137/68; PULSE 77; TEMP 97.9
[2018-07-12 14:10] VITALS: BP 137/68; PULSE 77; TEMP 97.9
--- NOTE | 2018-07-12 15:40 | NUR ---
Sat at side of bed with physical therapy in AM. Tolerated activity well. Left knee dressing change done. Incision line CDI. Airstrip and ely wrap applied. Minimal complaints of pain. Dismissed to [facility] per w/c vik.
== END 2018-07-12 15:40 | DRG 463 ==
LOC: COL.ER 16:47 → MEDICAL 18:53 → SURG 18:53 → ICU 20:28 → MEDICAL 07-05 10:57 → SURG 07-09 14:31
PROVIDERS: Emergency Medicine; Internal Medicine; Nurse Practitioner Family; Orthopaedic Surgery; Physician Assistant; ADMIT Family Medicine
PROC: 0S9D3ZX Drainage of Left Knee Joint, Percutaneous Approach, Diagnostic (ICD-10-PCS; 2018-07-06)
PROC: 0SHD08Z Insertion of Spacer into Left Knee Joint, Open Approach (ICD-10-PCS; 2018-07-09)
PROC: 0S9D00Z Drainage of Left Knee Joint with Drainage Device, Open Approach (ICD-10-PCS; 2018-07-09)
PROC: 0SPD09Z Removal of Liner from Left Knee Joint, Open Approach (ICD-10-PCS; principal; 2018-07-09 12:00)
DX: T84.54XA Infection and inflammatory reaction due to internal left knee prosthesis, initial encounter (principal); G93.41 Metabolic encephalopathy; I50.33 Acute on chronic diastolic (congestive) heart failure; N39.0 Urinary tract infection, site not specified; M00.062 Staphylococcal arthritis, left knee; Z66 Do not resuscitate; I25.10 Atherosclerotic heart disease of native coronary artery without angina pectoris; B95.62 Methicillin resistant Staphylococcus aureus infection as the cause of diseases classified elsewhere; J44.9 Chronic obstructive pulmonary disease, unspecified; I48.2 Chronic atrial fibrillation; G30.1 Alzheimer's disease with late onset; F02.80 Dementia in other diseases classified elsewhere, unspecified severity, without behavioral disturbance, psychotic disturbance, mood disturbance, and anxiety; E78.5 Hyperlipidemia, unspecified; Z86.711 Personal history of pulmonary embolism; Z79.01 Long term (current) use of anticoagulants; Z87.891 Personal history of nicotine dependence; D64.9 Anemia, unspecified; E88.81 Metabolic syndrome and other insulin resistance; R73.9 Hyperglycemia, unspecified; G47.33 Obstructive sleep apnea (adult) (pediatric)
CPT/HCPCS: 99222-AI; 99232-AI; 99233-AI; 99239; A4314; A9284; C1751; C1776; J0690; J0696; J1170; J1644; J1650; J1815; J1940; J2250; J2405; J2704; J3010; J3370; J3480; J7030; J7040; J7050; J7120

== ENCOUNTER → 2018-07-04 | Outpatient (REF) ==
[~2018-07-04] MED LIST changes: +COUMADIN4 MG PO; +DESYREL 50MG50 MG PO; +FISH OIL 1000MG1 CAP PO; +K-DUR20 MEQ PO; +MELATONIN5 M1 PO; +MIRALAX119G PO; +OCUVITE1 TA1 PO; +TYLENOL 500MG500 MG PO; +ZOLOFT 50MG50 MG PO
[2018-07-04 15:21] LABS: BASO % 0.2 % (0.0-2.0); EOS # 0.1 (0.0-0.7); EOS % 0.7 % (0-4.0); GRAN # 8.5 (1.4-6.5); GRAN % 77.6 % (42.2-75.2); LYMPH # 0.9 (1.2-3.4); MEAN CELL VOLUME 87 fl (80.0-100.0); MEAN CORPUSCULAR HEMOGLOBIN 28 pg (27.0-31.0); MEAN CORPUSCULAR HGB CONC 31 g/dl (33.0-37.0); MEAN PLATELET VOLUME 10.2 fl (7.4-10.4); MONO # 1.4 (0.1-0.6); MONO % 12.6 % (1.7-9.3); PLATELET COUNT 171 K/mm3 (130-400); RED BLOOD COUNT 3.64 M/mm3 (4.20-5.60); REDCELL DISTRIBUTION WIDTH-CV 15.9 % (11.5-14.5)
[2018-07-04 15:27] LABS: HEMATOCRIT 31.8 % (42.0-52.0)
[2018-07-04 15:44] LABS: ERYTHROCYTE SEDIMENTATION RATE 37 mm/hr (0-30)
== END ==
LOC: ZCOL.LAB 15:15
PROVIDERS: Internal Medicine
DX: Z01.89 Encounter for other specified special examinations (principal)

== ENCOUNTER → 2018-07-14 | Outpatient (REF) ==
[~2018-07-14] MED LIST changes: +COUMADIN4 MG PO; +DESYREL 50MG50 MG PO; +FISH OIL 1000MG1 CAP PO; +IPRATROPIUM BROM3 M1 IH; +K-DUR20 MEQ PO; +LOPRESSOR 225 MG/TAB PO; +MELATONIN5 M1 PO; +MIRALAX119G PO; +NORCO 325 MG-51 TAB PO; +NOVLOG SQ; +OCUVITE1 TA1 PO; +TYLENOL 500MG500 MG PO; +VANCOCIN HCL1 GM IV; +ZOLOFT 50MG50 MG PO
[2018-07-14 08:35] LABS: BASO % 0.4 % (0.0-2.0); EOS # 0.4 (0.0-0.7); EOS % 3.6 % (0-4.0); GRAN # 7.4 (1.4-6.5); LYMPH # 0.9 (1.2-3.4); LYMPH % 8.7 % (20.0-51.0); MEAN CELL VOLUME 87 fl (80.0-100.0); MEAN CORPUSCULAR HGB CONC 31 g/dl (33.0-37.0); MEAN PLATELET VOLUME 10.5 fl (7.4-10.4); MONO # 1.2 (0.1-0.6); PLATELET COUNT 255 K/mm3 (130-400); RED BLOOD COUNT 3.22 M/mm3 (4.20-5.60); REDCELL DISTRIBUTION WIDTH-CV 15.9 % (11.5-14.5)
[2018-07-14 08:40] LABS: HEMATOCRIT 28.1 % (42.0-52.0); HEMOGLOBIN 8.7 g/dl (13.5-18.0); MEAN CORPUSCULAR HEMOGLOBIN 27 pg (27.0-31.0)
[2018-07-14 08:52] LABS: ALBUMIN 2.4 gm/dL (3.5-5.0); BILIRUBIN,TOTAL 0.7 mg/dL (0.0-1.0); C-REACTIVE PROTEIN 6.8 mg/dL (0.0-0.9); CALCIUM 8.4 mg/dL (8.4-10.2); CREATININE, serum 0.69 mg/dL (0.66-1.25); TOTAL PROTEIN 5.4 gm/dL (6.4-8.2)
[2018-07-14 08:58] LABS: VANCOMYCIN TROUGH 26.85 ug/mL (7.00-20.00)
[2018-07-14 09:36] LABS: ERYTHROCYTE SEDIMENTATION RATE 32 mm/hr (0-30)
== END ==
LOC: ZCOL.LAB 08:21
PROVIDERS: Internal Medicine
DX: E87.6 Hypokalemia (principal); S72.402D Unspecified fracture of lower end of left femur, subsequent encounter for closed fracture with routine healing

== ENCOUNTER → 2018-07-17 | Outpatient (REF) | LOC: ZCOL.LAB 08:47 | DX: T84.54XD Infection and inflammatory reaction due to internal left knee prosthesis, subsequent encounter (principal) ==

== ENCOUNTER → 2018-07-21 | Outpatient (REF) ==
[2018-07-21 09:39] LABS: BASO % 0.4 % (0.0-2.0); EOS # 0.3 (0.0-0.7); GRAN # 6.9 (1.4-6.5); GRAN % 73.2 % (42.2-75.2); HEMOGLOBIN 9.8 g/dl (13.5-18.0); LYMPH # 1.1 (1.2-3.4); LYMPH % 11.4 % (20.0-51.0); MEAN CELL VOLUME 88 fl (80.0-100.0); MEAN CORPUSCULAR HEMOGLOBIN 27 pg (27.0-31.0); MEAN CORPUSCULAR HGB CONC 31 g/dl (33.0-37.0); MEAN PLATELET VOLUME 9.7 fl (7.4-10.4); MONO % 10.9 % (1.7-9.3); PLATELET COUNT 268 K/mm3 (130-400); RED BLOOD COUNT 3.63 M/mm3 (4.20-5.60); REDCELL DISTRIBUTION WIDTH-CV 16.1 % (11.5-14.5)
[2018-07-21 09:57] LABS: BILIRUBIN,TOTAL 0.6 mg/dL (0.0-1.0); C-REACTIVE PROTEIN 4.9 mg/dL (0.0-0.9); CALCIUM 8.9 mg/dL (8.4-10.2); CREATININE, serum 0.68 mg/dL (0.66-1.25); POTASSIUM 4.1 mmol/L (3.4-5.0); TOTAL PROTEIN 6.4 gm/dL (6.4-8.2)
[2018-07-21 09:59] LABS: VANCOMYCIN TROUGH 19.4 ug/mL (7.00-20.00)
[2018-07-21 10:01] LABS: ERYTHROCYTE SEDIMENTATION RATE 26 mm/hr (0-30)
== END ==
LOC: ZCOL.LAB 09:31
PROVIDERS: Internal Medicine
DX: T84.54XD Infection and inflammatory reaction due to internal left knee prosthesis, subsequent encounter (principal)

== ENCOUNTER → 2018-07-24 | Outpatient (REF) | LOC: ZCOL.LAB 08:59 | DX: T84.54XD Infection and inflammatory reaction due to internal left knee prosthesis, subsequent encounter (principal) ==

== ENCOUNTER → 2018-07-28 | Outpatient (REF) ==
[2018-07-28 11:45] LABS: BASO % 0.1 % (0.0-2.0); EOS # 0.4 (0.0-0.7); EOS % 4.3 % (0-4.0); GRAN # 6.1 (1.4-6.5); GRAN % 72.5 % (42.2-75.2); HEMATOCRIT 26.2 % (42.0-52.0); HEMOGLOBIN 8.1 g/dl (13.5-18.0); MEAN CELL VOLUME 88 fl (80.0-100.0); MEAN CORPUSCULAR HEMOGLOBIN 27 pg (27.0-31.0); MEAN CORPUSCULAR HGB CONC 31 g/dl (33.0-37.0); MEAN PLATELET VOLUME 9.7 fl (7.4-10.4); MONO # 0.9 (0.1-0.6); MONO % 10.6 % (1.7-9.3); PLATELET COUNT 209 K/mm3 (130-400); RED BLOOD COUNT 2.98 M/mm3 (4.20-5.60); REDCELL DISTRIBUTION WIDTH-CV 16.1 % (11.5-14.5)
[2018-07-28 12:02] LABS: ALBUMIN 2.7 gm/dL (3.5-5.0); BILIRUBIN,TOTAL 0.7 mg/dL (0.0-1.0); CALCIUM 8.3 mg/dL (8.4-10.2); CREATININE, serum 0.71 mg/dL (0.66-1.25); POTASSIUM 3.8 mmol/L (3.4-5.0); TOTAL PROTEIN 5.8 gm/dL (6.4-8.2)
[2018-07-28 12:05] LABS: VANCOMYCIN TROUGH 16.21 ug/mL (7.00-20.00)
[2018-07-28 12:06] LABS: ERYTHROCYTE SEDIMENTATION RATE 33 mm/hr (0-30)
== END ==
LOC: ZCOL.LAB 11:40
PROVIDERS: Internal Medicine
DX: Z01.89 Encounter for other specified special examinations (principal)

== ENCOUNTER → 2018-07-31 | Outpatient (REF) ==
[~2018-07-31] MED LIST changes: +ALMACONE 360 M360 ML PO; +ANTI-DIARRHEAL2 MG PO; +COUMADIN 6MG6 MG/TAB PO; +DULCOLAX S10 MG/SUPP RC; +HEPARIN LOCK F1 U/ML IV; +LASIX 40MG TABL40 MG PO; +MAXIPIME2 GM IJ; +MILK OF MA400 MG/52 PO; +NATURE'S BLEND100 M2 PO; +NYSTATIN CREAM15 GM; +TOPROL XL 25MG25 MG PO; +TYLENOL SU650 MG/SUP RC; +VANCOMYCIN HYD750 MG IV
== END ==
LOC: ZCOL.LAB 11:42
DX: Z01.89 Encounter for other specified special examinations (principal); T84.54XD Infection and inflammatory reaction due to internal left knee prosthesis, subsequent encounter

== ENCOUNTER → 2018-08-04 | Outpatient (REF) ==
[~2018-08-04] MED LIST changes: -ALMACONE 360 M360 ML PO; -ANTI-DIARRHEAL2 MG PO; -COUMADIN 6MG6 MG/TAB PO; -DULCOLAX S10 MG/SUPP RC; -HEPARIN LOCK F1 U/ML IV; -LASIX 40MG TABL40 MG PO; -MAXIPIME2 GM IJ; -MILK OF MA400 MG/52 PO; -NATURE'S BLEND100 M2 PO; -NYSTATIN CREAM15 GM; -TOPROL XL 25MG25 MG PO; -TYLENOL SU650 MG/SUP RC; -VANCOMYCIN HYD750 MG IV
[2018-08-04 11:33] LABS: BASO % 0.2 % (0.0-2.0); EOS # 0.3 (0.0-0.7); GRAN # 5.9 (1.4-6.5); GRAN % 69.9 % (42.2-75.2); LYMPH % 11.8 % (20.0-51.0); MEAN CELL VOLUME 88 fl (80.0-100.0); MEAN CORPUSCULAR HGB CONC 31 g/dl (33.0-37.0); MEAN PLATELET VOLUME 9.9 fl (7.4-10.4); MONO # 1.2 (0.1-0.6); MONO % 14.4 % (1.7-9.3); PLATELET COUNT 212 K/mm3 (130-400); RED BLOOD COUNT 3.41 M/mm3 (4.20-5.60); REDCELL DISTRIBUTION WIDTH-CV 17.1 % (11.5-14.5)
[2018-08-04 11:39] LABS: HEMATOCRIT 30.1 % (42.0-52.0); HEMOGLOBIN 9.2 g/dl (13.5-18.0); MEAN CORPUSCULAR HEMOGLOBIN 27 pg (27.0-31.0)
[2018-08-04 11:48] LABS: ALBUMIN 3.2 gm/dL (3.5-5.0); BILIRUBIN,TOTAL 0.7 mg/dL (0.0-1.0); C-REACTIVE PROTEIN 2.9 mg/dL (0.0-0.9); CALCIUM 8.9 mg/dL (8.4-10.2); CREATININE, serum 0.79 mg/dL (0.66-1.25); POTASSIUM 4.2 mmol/L (3.4-5.0); TOTAL PROTEIN 6.5 gm/dL (6.4-8.2)
[2018-08-04 11:51] LABS: VANCOMYCIN TROUGH 16.97 ug/mL (7.00-20.00)
[2018-08-04 12:09] LABS: ERYTHROCYTE SEDIMENTATION RATE 22 mm/hr (0-30)
== END ==
LOC: ZCOL.LAB 11:27
PROVIDERS: Internal Medicine
DX: T84.54XD Infection and inflammatory reaction due to internal left knee prosthesis, subsequent encounter (principal)

== ENCOUNTER → 2018-08-11 | Outpatient (REF) ==
[~2018-08-11] MED LIST changes: +ALMACONE 360 M360 ML PO; +ANTI-DIARRHEAL2 MG PO; +DULCOLAX S10 MG/SUPP RC; +HEPARIN LOCK F1 U/ML IV; +LASIX 40MG TABL40 MG PO; +MILK OF MA400 MG/52 PO; +NATURE'S BLEND100 M2 PO; +NYSTATIN CREAM15 GM; +TYLENOL SU650 MG/SUP RC; +VANCOMYCIN HYD750 MG IV
[2018-08-11 12:09] LABS: BASO % 0.3 % (0.0-2.0); EOS # 0.3 (0.0-0.7); EOS % 3.5 % (0-4.0); GRAN # 6.8 (1.4-6.5); GRAN % 71.5 % (42.2-75.2); LYMPH # 1.1 (1.2-3.4); MEAN CELL VOLUME 90 fl (80.0-100.0); MEAN CORPUSCULAR HGB CONC 31 g/dl (33.0-37.0); MEAN PLATELET VOLUME 10.1 fl (7.4-10.4); MONO # 1.2 (0.1-0.6); MONO % 12.2 % (1.7-9.3); PLATELET COUNT 197 K/mm3 (130-400); RED BLOOD COUNT 3.52 M/mm3 (4.20-5.60); REDCELL DISTRIBUTION WIDTH-CV 16.9 % (11.5-14.5)
[2018-08-11 12:12] LABS: HEMATOCRIT 31.6 % (42.0-52.0); HEMOGLOBIN 9.7 g/dl (13.5-18.0); MEAN CORPUSCULAR HEMOGLOBIN 28 pg (27.0-31.0)
[2018-08-11 12:23] LABS: ALBUMIN 3.3 gm/dL (3.5-5.0); BILIRUBIN,TOTAL 0.4 mg/dL (0.0-1.0); C-REACTIVE PROTEIN 4.4 mg/dL (0.0-0.9); CALCIUM 8.7 mg/dL (8.4-10.2); CREATININE, serum 0.85 mg/dL (0.66-1.25); POTASSIUM 4.1 mmol/L (3.4-5.0); TOTAL PROTEIN 6.5 gm/dL (6.4-8.2)
[2018-08-11 12:25] LABS: VANCOMYCIN TROUGH 15.62 ug/mL (7.00-20.00)
[2018-08-11 12:46] LABS: ERYTHROCYTE SEDIMENTATION RATE 21 mm/hr (0-30)
== END ==
LOC: ZCOL.LAB 12:02
PROVIDERS: Internal Medicine
DX: Z01.89 Encounter for other specified special examinations (principal)

== ENCOUNTER 2018-08-12 16:19 | Inpatient (IN) | payer MEDICARE ==
[~2018-08-12] VITALS: Ht 190.5 cm; Wt 106.6 kg
[~2018-08-12 16:19] MED LIST changes: -ALMACONE 360 M360 ML PO; -ANTI-DIARRHEAL2 MG PO; -DULCOLAX S10 MG/SUPP RC; -HEPARIN LOCK F1 U/ML IV; -LASIX 40MG TABL40 MG PO; -MILK OF MA400 MG/52 PO; -NATURE'S BLEND100 M2 PO; -NYSTATIN CREAM15 GM; -TYLENOL SU650 MG/SUP RC; -VANCOMYCIN HYD750 MG IV
[2018-08-12 17:10] LABS: BASO % 0.2 % (0.0-2.0); EOS # 0.1 (0.0-0.7); EOS % 0.4 % (0-4.0); GRAN # 10.5 (1.4-6.5); GRAN % 84.6 % (42.2-75.2); LYMPH # 0.5 (1.2-3.4); LYMPH % 3.8 % (20.0-51.0); MEAN CELL VOLUME 87 fl (80.0-100.0); MEAN CORPUSCULAR HGB CONC 32 g/dl (33.0-37.0); MEAN PLATELET VOLUME 9.9 fl (7.4-10.4); MONO # 1.3 (0.1-0.6); MONO % 10.3 % (1.7-9.3); PLATELET COUNT 191 K/mm3 (130-400); RED BLOOD COUNT 3.39 M/mm3 (4.20-5.60); REDCELL DISTRIBUTION WIDTH-CV 16.5 % (11.5-14.5)
[2018-08-12 17:22] LABS: ALBUMIN 3.3 gm/dL (3.5-5.0); BILIRUBIN,TOTAL 0.6 mg/dL (0.0-1.0); C-REACTIVE PROTEIN 4.5 mg/dL (0.0-0.9); CALCIUM 8.7 mg/dL (8.4-10.2); CREATININE, serum 0.77 mg/dL (0.66-1.25); POTASSIUM 3.9 mmol/L (3.4-5.0); TOTAL PROTEIN 6.7 gm/dL (6.4-8.2)
[2018-08-12 17:29] LABS: INR 1.5 (0.8-3.0); PROTHROMBIN TIME 17.6 SECONDS (9.7-12.8)
[2018-08-12 17:30] LABS: HEMATOCRIT 29.5 % (42.0-52.0); HEMOGLOBIN 9.3 g/dl (13.5-18.0); MEAN CORPUSCULAR HEMOGLOBIN 27 pg (27.0-31.0)
[2018-08-12 17:31] LABS: TROPONIN-I 0.017 ng/mL (0.000-0.035)
[2018-08-12 18:29] LABS: COLLECTION METHOD CLEAN CATCH
[2018-08-12 18:46] LABS: BUDDING YEAST Present /hpf; PH 5 (5-8); SQUAMOUS EPITHELIAL None Seen /hpf; URINE APPEARANCE Turbid; URINE BACTERIA None Seen /hpf; URINE BILIRUBIN Negative (NEGATIVE); URINE BLOOD 1+ (NEGATIVE); URINE COLOR Yellow; URINE GLUCOSE Negative (NEGATIVE); URINE KETONE Negative (NEGATIVE); URINE LEUKOCYTE ESTERASE 3+ (NEGATIVE); URINE NITRATE Negative (NEGATIVE); URINE PROTEIN(semi-quant) Negative (NEGATIVE); URINE RBC >50 /hpf; URINE UROBILINOGEN Negative (NEGATIVE)
[2018-08-12] MEDS ORDERED: LASIX 40MG TABL40 MG PO (19:32)
[2018-08-12] MEDS ORDERED: NATURE'S BLEND100 M2 PO (19:40)
[2018-08-12] MEDS ORDERED: K-DUR20 MEQ PO (19:40)
[2018-08-12] MEDS ORDERED: TYLENOL SU650 MG/SUP RC (20:56)
--- NOTE | 2018-08-12 21:06 | NUR ---
Patient arrived to floor from ER at 1999. accompanied patient. Four assist to slide from ER bed to medical bed. Patient tired with dementia. assisted with answering most questions. Patient pleasant. Wearing oxygen at 2 L/min via NC. NS running at 500ml/hr at this time to complete ordered bolus. IV site to right wrist was occluding easily. PICC to RUE. Cap changed, and started IV fluids into PICC. LS CTA. Heart with regular rate and rhythm. 2+ edema BLE.
[2018-08-12] MEDS ORDERED: VANCOMYCIN HYD750 MG IV (21:08)
[2018-08-12] MEDS ORDERED: NYSTATIN CREAM15 GM (21:12)
[2018-08-12 21:15] VITALS: BP 143/70; PULSE 87; TEMP 98.6
[2018-08-12] MEDS ORDERED: DULCOLAX S10 MG/SUPP RC (21:17)
[2018-08-12] MEDS ORDERED: HEPARIN LOCK F1 U/ML IV (21:18)
[2018-08-12] MEDS ORDERED: ANTI-DIARRHEAL2 MG PO (21:24)
[2018-08-12] MEDS ORDERED: MILK OF MA400 MG/52 PO (21:25)
[2018-08-12] MEDS ORDERED: ALMACONE 360 M360 ML PO (21:26)
[2018-08-13] VITALS (8 sets, daily range): BP systolic 99–135; BP diastolic 42–98; PULSE 55–120; TEMP 97.2–100.5
--- NOTE | 2018-08-13 00:44 | NUR ---
Temperature checked with a result of 100.5. Big blanket pulled down, and heater turned down in room. Patient ok with intervention at this time. Denies having pain and discomfort.
--- NOTE | 2018-08-13 01:28 | NUR ---
Temperature rechecked with a result of 98.4 orally at this time.
[2018-08-13 05:51] LABS: BASO % 0.3 % (0.0-2.0); EOS % 0.1 % (0-4.0); GRAN # 6.3 (1.4-6.5); GRAN % 81.9 % (42.2-75.2); LYMPH # 0.6 (1.2-3.4); LYMPH % 7.3 % (20.0-51.0); MEAN CELL VOLUME 89 fl (80.0-100.0); MEAN CORPUSCULAR HGB CONC 31 g/dl (33.0-37.0); MEAN PLATELET VOLUME 10.1 fl (7.4-10.4); MONO # 0.7 (0.1-0.6); MONO % 9.6 % (1.7-9.3); PLATELET COUNT 154 K/mm3 (130-400); RED BLOOD COUNT 2.97 M/mm3 (4.20-5.60); REDCELL DISTRIBUTION WIDTH-CV 16.4 % (11.5-14.5)
[2018-08-13 05:52] LABS: HEMATOCRIT 26.3 % (42.0-52.0); HEMOGLOBIN 8.1 g/dl (13.5-18.0); MEAN CORPUSCULAR HEMOGLOBIN 27 pg (27.0-31.0)
[2018-08-13 05:54] LABS: INR 1.5 (0.8-3.0); PROTHROMBIN TIME 16.9 SECONDS (9.7-12.8)
[2018-08-13 06:06] LABS: CALCIUM 8.2 mg/dL (8.4-10.2); CREATININE, serum 0.76 mg/dL (0.66-1.25); POTASSIUM 3.4 mmol/L (3.4-5.0)
--- NOTE | 2018-08-13 06:19 | NUR ---
Patient repositioned throughout the night. Denies having pain and discomfort during the night. Had fever of 100.5, but decreased with decrease in blankets, as well as decreased room temperature. No further fevers so far this shift.
[2018-08-13 06:34] LABS: TSH w REFLEX 4.96 uIU/mL (0.465-4.680)
--- NOTE | 2018-08-13 08:00 | NUR ---
Pt awake, alert, and oriented to self, date of , hospital setting "for knee"; disoriented to city, time of //. Morning meds crushed and administered with apple sauce without difficulty or coughing. Pt able to self feed with ease. Breakfast order placed. Call light within reach, no complaints at this time.
--- NOTE | 2018-08-13 09:50 | NUR ---
PICC intact right upper arm with sterile dressing change done with insertion site cleansed with chloraprep x 1, chlorhexidine impregnated disk applied, skin prep, stat lock, and tegaderm applied. no signs or symptoms of IV complications noted. no concerns voiced. re-wrapped with ely to protect catheter.
--- NOTE | 2018-08-13 10:52 | NUR ---
JUDE met with the patient and patient's , Juliet, to discuss discharge plan. The patient resides at [facility] for long-term care at [facility]. The patient's reports that the patient was at [facility] prior to hospitalization, due to the need of IV antibiotics. The patient's reports that the plan is for the patient to return back to [facility] upon discharge. Patient choice form signed by the patient's and she declined a copy. JUDE has contacted and will fax updates to Afsaneh at [facility] and continue to follow.
--- NOTE | 2018-08-13 12:25 | NUR ---
Pt taken via wheelchair to private vehicle accompanied by spouse.
--- NOTE | 2018-08-13 17:18 | NUR ---
Pt preoccupied with eating during CHF handbook education, spouse left for the day at 1600
--- NOTE | 2018-08-13 22:08 | NUR ---
Patient assessed. More alert and talkative tonight compared to last night. Smiling and conversing easily with staff. Denies having pain and discomfort. Denies having SOB and dyspnea. Patient kept taking off oxygen. Oxygen was on at 2 L/min via NC. This nurse stayed with patient for approximately 10 minutes with oxygen off. O2 checked with a result of 94% on room air. Continued to deny having SOB and dyspnea. LS CTA. Respirations even and unlabored. Stool culture still needs obtained. Patient has not had a bowel movement so far this shift.
--- NOTE | 2018-08-13 23:48 | NUR ---
In bed watching TV at this time. Continues to be awake. Pleasantly confused. Denies having any needs. Vancomycin is running at this time per orders. Call light within reach.
[2018-08-14 03:38] VITALS: BP 138/67; PULSE 64; TEMP 96.9
--- NOTE | 2018-08-14 03:55 | NUR ---
Denies having pain and discomfort. Patient has been getting repositioned throughout the night, with incontinent cares being provided by staff. No BM so far this shift. Staff continues to need to obtain stool sample at this time.
--- NOTE | 2018-08-14 06:10 | NUR ---
Patient has been without fever throughout the night. Denies having pain and discomfort. Staff repositioned frequently from side to side, and provided check, change, and perineal hygiene care for urinary incontinence. Has been sleeping most of this shift, easily awakened with cares. Resting in bed with eyes closed at this time. Call light is within reach. Continues on contact precautions. No BM this shift. Staff still needing to obtain stool culture.
[2018-08-14 06:14] LABS: BASO % 0.3 % (0.0-2.0); EOS # 0.3 (0.0-0.7); EOS % 4.1 % (0-4.0); GRAN # 3.9 (1.4-6.5); GRAN % 61.2 % (42.2-75.2); LYMPH # 1.1 (1.2-3.4); LYMPH % 17.3 % (20.0-51.0); MEAN CELL VOLUME 90 fl (80.0-100.0); MEAN CORPUSCULAR HGB CONC 30 g/dl (33.0-37.0); MONO % 16.3 % (1.7-9.3); PLATELET COUNT 141 K/mm3 (130-400); RED BLOOD COUNT 3.06 M/mm3 (4.20-5.60); REDCELL DISTRIBUTION WIDTH-CV 16.1 % (11.5-14.5)
[2018-08-14 06:17] LABS: HEMATOCRIT 27.4 % (42.0-52.0); HEMOGLOBIN 8.2 g/dl (13.5-18.0); MEAN CORPUSCULAR HEMOGLOBIN 27 pg (27.0-31.0)
[2018-08-14 06:18] LABS: INR 1.5 (0.8-3.0); PROTHROMBIN TIME 16.8 SECONDS (9.7-12.8)
[2018-08-14 06:31] LABS: CALCIUM 8.2 mg/dL (8.4-10.2); CREATININE, serum 0.75 mg/dL (0.66-1.25); POTASSIUM 3.4 mmol/L (3.4-5.0)
[2018-08-14 07:32] VITALS: BP 140/73; PULSE 71; TEMP 97
--- NOTE | 2018-08-14 08:03 | NUR ---
Pt awake, alert, oriented to left knee procedure history, month of the year, self and hospital setting. Disoriented to city and year. Call light within reach. No complaints at this time.
[2018-08-14 10:34] VITALS: BP 121/59; PULSE 61; TEMP 97
--- NOTE | 2018-08-14 13:14 | NUR ---
Initial visit; Pet Training Instructor spoke with patient's and also let him know he is in Pet Training Instructor's prayers.
[2018-08-14 16:14] VITALS: BP 150/82; PULSE 83; TEMP 98.2
--- NOTE | 2018-08-14 19:10 | NUR ---
Since taking over cares the pt has been resting quietly. He has remained free of pain. Pt's was at the bedside; all questions answered. Pt is sitting up in the bed waiting for his dinner to arrive at this time and he denies further needs. Call light within reach. Report given to REMEDIOS Villareal.
[2018-08-14 19:34] VITALS: BP 147/86; PULSE 78; TEMP 97.6
--- NOTE | 2018-08-14 20:18 | NUR ---
PT RESTING IN BED. A+O to self but not place or situation. no pain. picc flushes well, blood return noted. pt incontinent with urine. full bed change and patricio care given. tele on. no needs at this time. call light in reach. bed alarm on.
[2018-08-15 00:45] VITALS: BP 122/61; PULSE 67; TEMP 96.8
--- NOTE | 2018-08-15 01:07 | NUR ---
pt alert but confused. no pain. pt incontinent of urine, brief changed. turning pt Q2. no needs at this time. call light in reach, bed alarm on
--- NOTE | 2018-08-15 03:09 | NUR ---
pt lower extremities are red with 1+ swelling stapleton and lower. no needs at this time. call light inreach
[2018-08-15 03:19] VITALS: BP 151/86; PULSE 81; TEMP 97.4
--- NOTE | 2018-08-15 03:25 | NUR ---
pt had an incontinent void, brief changed. turning pt q2. no needs at this time. call light in reach
--- NOTE | 2018-08-15 05:32 | NUR ---
pt slept through night. no pain. alert oriented to self only. incontinent. no needs at this time. call light in reach. bed alarm on
[2018-08-15 05:55] LABS: BASO % 0.4 % (0.0-2.0); EOS # 0.2 (0.0-0.7); GRAN # 5.1 (1.4-6.5); GRAN % 67.4 % (42.2-75.2); LYMPH # 1.2 (1.2-3.4); LYMPH % 15.3 % (20.0-51.0); MEAN CELL VOLUME 88 fl (80.0-100.0); MEAN CORPUSCULAR HGB CONC 30 g/dl (33.0-37.0); MEAN PLATELET VOLUME 10.5 fl (7.4-10.4); MONO % 13.4 % (1.7-9.3); PLATELET COUNT 175 K/mm3 (130-400); RED BLOOD COUNT 3.25 M/mm3 (4.20-5.60); REDCELL DISTRIBUTION WIDTH-CV 15.9 % (11.5-14.5)
[2018-08-15 05:59] LABS: HEMATOCRIT 28.6 % (42.0-52.0); HEMOGLOBIN 8.7 g/dl (13.5-18.0); MEAN CORPUSCULAR HEMOGLOBIN 27 pg (27.0-31.0)
[2018-08-15 06:03] LABS: CALCIUM 8.6 mg/dL (8.4-10.2); CREATININE, serum 0.74 mg/dL (0.66-1.25); POTASSIUM 3.4 mmol/L (3.4-5.0)
--- NOTE | 2018-08-15 06:47 | NUR ---
report given to REMEDIOS Shelley
[2018-08-15 07:37] LABS: INR 1.6 (0.8-3.0); PROTHROMBIN TIME 18.1 SECONDS (9.7-12.8)
[2018-08-15 08:23] VITALS: BP 123/54; PULSE 93; TEMP 97.7
--- NOTE | 2018-08-15 11:57 | NUR ---
SW student faxed updates to Afsaneh at [facility].
[2018-08-15] MEDS ORDERED: COUMADIN 6MG6 MG/TAB PO (12:28)
[2018-08-15] MEDS ORDERED: TOPROL XL 25MG25 MG PO (12:29)
[2018-08-15] MEDS ORDERED: NORCO 325 MG-51 TAB PO (12:33)
[2018-08-15] MEDS ORDERED: MAXIPIME2 GM IJ (12:33)
[2018-08-15 13:20] VITALS: BP 122/48; PULSE 71; TEMP 98
--- NOTE | 2018-08-15 13:45 | NUR ---
The patient is to discharge today, 08/15, back to [facility] for a skilled stay. Transportation was set for 1415, via [facility]. JUDE informed the patient's nurse and informed the patient's that transport would be around that time. The patient's was in agreeance. JUDE also presented and explained the IM form to the patient's . The patient's verbalized understanding, signed, and she was provided a copy. No additional needs at this time.
[2018-08-15] MEDS ORDERED: VANCOCIN HCL1 GM IV (14:20)
[2018-08-15 15:16] VITALS: BP 122/48; PULSE 71; TEMP 98
--- NOTE | 2018-08-15 15:21 | NUR ---
Pt transfered from bed to wheelchair using sit to stand device without difficulty.
--- NOTE | 2018-08-15 15:39 | NUR ---
Report phoned to REMEDIOS Fritz at [facility]. All questions answered.
== END 2018-08-15 15:45 | DRG 698 ==
LOC: COL.ER 16:19 → MEDICAL 17:02 → COL.ER 17:02 → MEDICAL 18:52
PROVIDERS: Emergency Medicine; Family Medicine; Nurse Practitioner; Physician Assistant; ADMIT Hospitalist
DX: T83.511A Infection and inflammatory reaction due to indwelling urethral catheter, initial encounter (principal); A41.9 Sepsis, unspecified organism; G93.41 Metabolic encephalopathy; I50.32 Chronic diastolic (congestive) heart failure; N39.0 Urinary tract infection, site not specified; E78.5 Hyperlipidemia, unspecified; F03.90 Unspecified dementia, unspecified severity, without behavioral disturbance, psychotic disturbance, mood disturbance, and anxiety; I25.10 Atherosclerotic heart disease of native coronary artery without angina pectoris; B96.5 Pseudomonas (aeruginosa) (mallei) (pseudomallei) as the cause of diseases classified elsewhere; I48.91 Unspecified atrial fibrillation; J44.9 Chronic obstructive pulmonary disease, unspecified; Z86.711 Personal history of pulmonary embolism; Z79.01 Long term (current) use of anticoagulants; E03.9 Hypothyroidism, unspecified; Z87.891 Personal history of nicotine dependence; D64.9 Anemia, unspecified
CPT/HCPCS: OP; 99223-AI; 99232-AI; 99239; J0692; J1650; J1940; J3370; J7030; J7040; J7050

== ENCOUNTER → 2018-08-16 | Outpatient (REF) ==
[~2018-08-16] MED LIST changes: +ALMACONE 360 M360 ML PO; +ANTI-DIARRHEAL2 MG PO; +COUMADIN 6MG6 MG/TAB PO; +DULCOLAX S10 MG/SUPP RC; +HEPARIN LOCK F1 U/ML IV; +LASIX 40MG TABL40 MG PO; +MAXIPIME2 GM IJ; +MILK OF MA400 MG/52 PO; +NATURE'S BLEND100 M2 PO; +NYSTATIN CREAM15 GM; +TOPROL XL 25MG25 MG PO; +TYLENOL SU650 MG/SUP RC; +VANCOMYCIN HYD750 MG IV
== END ==
LOC: ZCOL.LAB 10:25
DX: Z01.89 Encounter for other specified special examinations (principal)

== ENCOUNTER → 2018-08-18 | Outpatient (REF) ==
[2018-08-18 13:52] LABS: BASO # 0.1 (0.0-0.2); BASO % 0.4 % (0.0-2.0); EOS # 0.2 (0.0-0.7); EOS % 1.3 % (0-4.0); GRAN # 9.9 (1.4-6.5); GRAN % 78.6 % (42.2-75.2); LYMPH # 0.9 (1.2-3.4); LYMPH % 7.1 % (20.0-51.0); MEAN CELL VOLUME 88 fl (80.0-100.0); MEAN CORPUSCULAR HGB CONC 31 g/dl (33.0-37.0); MEAN PLATELET VOLUME 10.6 fl (7.4-10.4); MONO # 1.4 (0.1-0.6); MONO % 11.5 % (1.7-9.3); PLATELET COUNT 217 K/mm3 (130-400); RED BLOOD COUNT 3.58 M/mm3 (4.20-5.60); REDCELL DISTRIBUTION WIDTH-CV 16.1 % (11.5-14.5)
[2018-08-18 13:53] LABS: HEMATOCRIT 31.5 % (42.0-52.0); HEMOGLOBIN 9.8 g/dl (13.5-18.0); MEAN CORPUSCULAR HEMOGLOBIN 27 pg (27.0-31.0)
[2018-08-18 14:15] LABS: ERYTHROCYTE SEDIMENTATION RATE 26 mm/hr (0-30)
[2018-08-18 14:18] LABS: ALBUMIN 3.4 gm/dL (3.5-5.0); BILIRUBIN,TOTAL 0.6 mg/dL (0.0-1.0); C-REACTIVE PROTEIN 3.5 mg/dL (0.0-0.9); CALCIUM 8.9 mg/dL (8.4-10.2); CREATININE, serum 0.73 mg/dL (0.66-1.25); POTASSIUM 4.3 mmol/L (3.4-5.0); TOTAL PROTEIN 6.7 gm/dL (6.4-8.2)
[2018-08-18 14:21] LABS: VANCOMYCIN TROUGH 15.3 ug/mL (7.00-20.00)
== END ==
LOC: ZCOL.LAB 13:42
PROVIDERS: Internal Medicine
DX: A41.9 Sepsis, unspecified organism (principal)

== ENCOUNTER → 2018-08-25 | Outpatient (REF) ==
[2018-08-25 13:56] LABS: BASO # 0.1 (0.0-0.2); BASO % 0.6 % (0.0-2.0); EOS # 0.2 (0.0-0.7); EOS % 2.7 % (0-4.0); GRAN # 6.1 (1.4-6.5); GRAN % 67.5 % (42.2-75.2); HEMOGLOBIN 9.8 g/dl (13.5-18.0); LYMPH # 1.3 (1.2-3.4); LYMPH % 14.8 % (20.0-51.0); MEAN CELL VOLUME 88 fl (80.0-100.0); MEAN CORPUSCULAR HEMOGLOBIN 27 pg (27.0-31.0); MEAN CORPUSCULAR HGB CONC 31 g/dl (33.0-37.0); MEAN PLATELET VOLUME 10.5 fl (7.4-10.4); MONO # 1.2 (0.1-0.6); MONO % 13.7 % (1.7-9.3); PLATELET COUNT 228 K/mm3 (130-400); RED BLOOD COUNT 3.64 M/mm3 (4.20-5.60); REDCELL DISTRIBUTION WIDTH-CV 15.7 % (11.5-14.5)
[2018-08-25 14:07] LABS: ALBUMIN 3.5 gm/dL (3.5-5.0); BILIRUBIN,TOTAL 0.5 mg/dL (0.0-1.0); C-REACTIVE PROTEIN 2.7 mg/dL (0.0-0.9); CREATININE, serum 0.8 mg/dL (0.66-1.25); POTASSIUM 4.3 mmol/L (3.4-5.0); TOTAL PROTEIN 6.7 gm/dL (6.4-8.2)
[2018-08-25 14:10] LABS: VANCOMYCIN TROUGH 18.48 ug/mL (7.00-20.00)
[2018-08-25 14:17] LABS: ERYTHROCYTE SEDIMENTATION RATE 19 mm/hr (0-30)
== END ==
LOC: ZCOL.LAB 13:49
PROVIDERS: Internal Medicine
DX: E11.59 Type 2 diabetes mellitus with other circulatory complications (principal); A41.9 Sepsis, unspecified organism; D64.9 Anemia, unspecified; T84.54XD Infection and inflammatory reaction due to internal left knee prosthesis, subsequent encounter

== ENCOUNTER → 2018-09-01 | Outpatient (REF) | LOC: ZCOL.LAB 11:25 | DX: E11.59 Type 2 diabetes mellitus with other circulatory complications (principal); D64.9 Anemia, unspecified; A41.9 Sepsis, unspecified organism ==

== ENCOUNTER → 2018-09-10 | Outpatient (CLI) | payer MEDICARE | LOC: ZCOL.LAB 11:03 | DX: Z01.89 Encounter for other specified special examinations (principal) ==

== ENCOUNTER → 2018-09-11 | Outpatient (CLI) | payer MEDICARE ==
[2018-09-11 21:37] LABS: COLLECTION METHOD CATHETER
[2018-09-11 21:43] LABS: MUCOUS Present /lpf; PH 6 (5-8); SQUAMOUS EPITHELIAL 0-2 /hpf; URINE APPEARANCE Clear; URINE BACTERIA None Seen /hpf; URINE BILIRUBIN Negative (NEGATIVE); URINE BLOOD Negative (NEGATIVE); URINE COLOR Yellow; URINE GLUCOSE Negative (NEGATIVE); URINE KETONE Negative (NEGATIVE); URINE LEUKOCYTE ESTERASE Negative (NEGATIVE); URINE NITRATE Negative (NEGATIVE); URINE PROTEIN(semi-quant) Negative (NEGATIVE); URINE RBC 0-2 /hpf; URINE UROBILINOGEN >=4.0 mg/dL (NEGATIVE)
== END ==
LOC: ZCOL.LAB 21:09
PROVIDERS: Internal Medicine
DX: N39.0 Urinary tract infection, site not specified (principal)

== ENCOUNTER → 2018-09-15 | Outpatient (CLI) | payer MEDICARE ==
[2018-09-15 18:43] LABS: BASO # 0.1 (0.0-0.2); BASO % 0.8 % (0.0-2.0); EOS # 0.3 (0.0-0.7); EOS % 4.1 % (0-4.0); GRAN # 4.5 (1.4-6.5); HEMOGLOBIN 10.7 g/dl (13.5-18.0); LYMPH # 1.3 (1.2-3.4); LYMPH % 18.8 % (20.0-51.0); MEAN CELL VOLUME 85 fl (80.0-100.0); MEAN CORPUSCULAR HEMOGLOBIN 27 pg (27.0-31.0); MEAN CORPUSCULAR HGB CONC 31 g/dl (33.0-37.0); MEAN PLATELET VOLUME 11.5 fl (7.4-10.4); MONO # 0.9 (0.1-0.6); PLATELET COUNT 161 K/mm3 (130-400); RED BLOOD COUNT 4.03 M/mm3 (4.20-5.60); REDCELL DISTRIBUTION WIDTH-CV 15.1 % (11.5-14.5)
[2018-09-15 18:51] LABS: HEMATOCRIT 34.3 % (42.0-52.0)
== END ==
LOC: COL.LAB 18:17 → ZCOL.LAB 18:17
PROVIDERS: Internal Medicine
DX: A41.9 Sepsis, unspecified organism (principal); I50.30 Unspecified diastolic (congestive) heart failure; I48.2 Chronic atrial fibrillation

== ENCOUNTER → 2018-09-16 | Outpatient (REF) ==
[2018-09-16 10:17] LABS: ALBUMIN 3.4 gm/dL (3.5-5.0); BILIRUBIN,TOTAL 0.4 mg/dL (0.0-1.0); CALCIUM 9.3 mg/dL (8.4-10.2); CREATININE, serum 0.91 mg/dL (0.66-1.25); TOTAL PROTEIN 6.6 gm/dL (6.4-8.2)
== END ==
LOC: ZLAB.STJ 10:02 → ZCOL.LAB 10:02
PROVIDERS: Internal Medicine
DX: A41.9 Sepsis, unspecified organism (principal); I26.99 Other pulmonary embolism without acute cor pulmonale

== ENCOUNTER → 2018-09-22 | Outpatient (CLI) | payer MEDICARE, MEDICAID ==
[2018-09-22 08:51] LABS: ALBUMIN 3.6 gm/dL (3.5-5.0); BILIRUBIN,TOTAL 0.4 mg/dL (0.0-1.0); C-REACTIVE PROTEIN 0.9 mg/dL (0.0-0.9); CALCIUM 9.3 mg/dL (8.4-10.2); CREATININE, serum 0.79 mg/dL (0.66-1.25); TOTAL PROTEIN 6.8 gm/dL (6.4-8.2)
[2018-09-22 08:56] LABS: BASO # 0.1 (0.0-0.2); BASO % 0.6 % (0.0-2.0); EOS # 0.2 (0.0-0.7); EOS % 2.9 % (0-4.0); GRAN # 5.3 (1.4-6.5); HEMATOCRIT 37.2 % (42.0-52.0); HEMOGLOBIN 11.5 g/dl (13.5-18.0); LYMPH # 1.6 (1.2-3.4); LYMPH % 19.4 % (20.0-51.0); MEAN CELL VOLUME 84 fl (80.0-100.0); MEAN CORPUSCULAR HEMOGLOBIN 26 pg (27.0-31.0); MEAN CORPUSCULAR HGB CONC 31 g/dl (33.0-37.0); MEAN PLATELET VOLUME 10.4 fl (7.4-10.4); MONO # 0.9 (0.1-0.6); MONO % 10.7 % (1.7-9.3); PLATELET COUNT 174 K/mm3 (130-400); RED BLOOD COUNT 4.41 M/mm3 (4.20-5.60)
[2018-09-22 09:54] LABS: ERYTHROCYTE SEDIMENTATION RATE 4 mm/hr (0-30)
== END ==
LOC: ZCOL.LAB 08:27
PROVIDERS: Internal Medicine
DX: D64.9 Anemia, unspecified (principal); E87.6 Hypokalemia; A41.9 Sepsis, unspecified organism; T84.54XD Infection and inflammatory reaction due to internal left knee prosthesis, subsequent encounter

== ENCOUNTER → 2018-10-20 | Outpatient (REF) ==
[2018-10-20 09:34] LABS: BASO % 0.4 % (0.0-2.0); EOS # 0.3 (0.0-0.7); EOS % 3.8 % (0-4.0); GRAN # 5.4 (1.4-6.5); GRAN % 68.6 % (42.2-75.2); HEMATOCRIT 40.1 % (42.0-52.0); HEMOGLOBIN 12.6 g/dl (13.5-18.0); LYMPH # 1.3 (1.2-3.4); LYMPH % 16.5 % (20.0-51.0); MEAN CELL VOLUME 83 fl (80.0-100.0); MEAN CORPUSCULAR HEMOGLOBIN 26 pg (27.0-31.0); MEAN CORPUSCULAR HGB CONC 31 g/dl (33.0-37.0); MEAN PLATELET VOLUME 10.1 fl (7.4-10.4); MONO # 0.8 (0.1-0.6); MONO % 10.1 % (1.7-9.3); PLATELET COUNT 187 K/mm3 (130-400); RED BLOOD COUNT 4.86 M/mm3 (4.20-5.60); REDCELL DISTRIBUTION WIDTH-CV 15.9 % (11.5-14.5)
[2018-10-20 09:51] LABS: ALBUMIN 3.4 gm/dL (3.5-5.0); BILIRUBIN,TOTAL 0.5 mg/dL (0.0-1.0); C-REACTIVE PROTEIN 1.3 mg/dL (0.0-0.9); CALCIUM 9.3 mg/dL (8.4-10.2); CREATININE, serum 0.83 (0.66-1.25); ERYTHROCYTE SEDIMENTATION RATE 9 mm/hr (0-30); POTASSIUM 3.6 mmol/L (3.4-5.0); TOTAL PROTEIN 6.7 gm/dL (6.4-8.2)
== END ==
LOC: ZCOL.LAB 09:28
PROVIDERS: Internal Medicine
DX: Z01.89 Encounter for other specified special examinations (principal)

== ENCOUNTER → 2018-10-23 | Outpatient (CLI) | payer MEDICARE, MEDICAID | LOC: ZCOL.LAB 16:38 | DX: E03.9 Hypothyroidism, unspecified (principal) ==

== ENCOUNTER → 2018-10-27 | Outpatient (REF) ==
[2018-10-27 10:32] LABS: BASO % 0.4 % (0.0-2.0); EOS # 0.2 (0.0-0.7); EOS % 2.7 % (0-4.0); GRAN # 5.2 (1.4-6.5); GRAN % 67.3 % (42.2-75.2); HEMOGLOBIN 11.9 g/dl (13.5-18.0); LYMPH # 1.5 (1.2-3.4); LYMPH % 19.4 % (20.0-51.0); MEAN CELL VOLUME 83 fl (80.0-100.0); MEAN CORPUSCULAR HEMOGLOBIN 26 pg (27.0-31.0); MEAN CORPUSCULAR HGB CONC 31 g/dl (33.0-37.0); MEAN PLATELET VOLUME 9.9 fl (7.4-10.4); MONO # 0.8 (0.1-0.6); MONO % 9.7 % (1.7-9.3); PLATELET COUNT 189 K/mm3 (130-400); RED BLOOD COUNT 4.59 M/mm3 (4.20-5.60); REDCELL DISTRIBUTION WIDTH-CV 16.3 % (11.5-14.5)
[2018-10-27 10:43] LABS: ALBUMIN 3.4 gm/dL (3.5-5.0); BILIRUBIN,TOTAL 0.4 mg/dL (0.0-1.0); CALCIUM 9.2 mg/dL (8.4-10.2); CREATININE, serum 0.78 (0.66-1.25); POTASSIUM 3.9 mmol/L (3.4-5.0); TOTAL PROTEIN 6.5 gm/dL (6.4-8.2)
[2018-10-27 11:10] LABS: ERYTHROCYTE SEDIMENTATION RATE 7 mm/hr (0-30)
== END ==
LOC: ZCOL.LAB 10:24
PROVIDERS: Internal Medicine
DX: J44.9 Chronic obstructive pulmonary disease, unspecified (principal); E11.59 Type 2 diabetes mellitus with other circulatory complications; I50.30 Unspecified diastolic (congestive) heart failure

== ENCOUNTER → 2018-11-10 | Outpatient (REF) ==
[2018-11-10 10:01] LABS: BASO % 0.5 % (0.0-2.0); EOS # 0.2 (0.0-0.7); EOS % 2.8 % (0-4.0); GRAN # 4.8 (1.4-6.5); HEMATOCRIT 40.5 % (42.0-52.0); HEMOGLOBIN 12.6 g/dl (13.5-18.0); LYMPH # 1.7 (1.2-3.4); LYMPH % 22.9 % (20.0-51.0); MEAN CELL VOLUME 82 fl (80.0-100.0); MEAN CORPUSCULAR HEMOGLOBIN 26 pg (27.0-31.0); MEAN CORPUSCULAR HGB CONC 31 g/dl (33.0-37.0); MEAN PLATELET VOLUME 10.9 fl (7.4-10.4); MONO # 0.8 (0.1-0.6); MONO % 10.1 % (1.7-9.3); PLATELET COUNT 203 K/mm3 (130-400); RED BLOOD COUNT 4.92 M/mm3 (4.20-5.60)
[2018-11-10 10:10] LABS: ALBUMIN 3.3 gm/dL (3.5-5.0); BILIRUBIN,TOTAL 0.6 mg/dL (0.0-1.0); CALCIUM 9.3 mg/dL (8.4-10.2); CREATININE, serum 0.75 (0.66-1.25); POTASSIUM 4.2 mmol/L (3.4-5.0); TOTAL PROTEIN 6.6 gm/dL (6.4-8.2)
[2018-11-10 10:18] LABS: ERYTHROCYTE SEDIMENTATION RATE 7 mm/hr (0-30)
== END ==
LOC: ZCOL.LAB 09:52
PROVIDERS: Internal Medicine
DX: E11.59 Type 2 diabetes mellitus with other circulatory complications (principal); E87.6 Hypokalemia; I25.10 Atherosclerotic heart disease of native coronary artery without angina pectoris; I50.30 Unspecified diastolic (congestive) heart failure

== ENCOUNTER → 2018-11-25 | Outpatient (REF) ==
[2018-11-25 13:29] LABS: BASO # 0.1 (0.0-0.2); BASO % 0.5 % (0.0-2.0); EOS # 0.2 (0.0-0.7); EOS % 1.7 % (0-4.0); GRAN # 7.1 (1.4-6.5); GRAN % 71.5 % (42.2-75.2); HEMATOCRIT 40.4 % (42.0-52.0); HEMOGLOBIN 12.6 g/dl (13.5-18.0); LYMPH # 1.6 (1.2-3.4); LYMPH % 16.1 % (20.0-51.0); MEAN CELL VOLUME 83 fl (80.0-100.0); MEAN CORPUSCULAR HEMOGLOBIN 26 pg (27.0-31.0); MEAN CORPUSCULAR HGB CONC 31 g/dl (33.0-37.0); MEAN PLATELET VOLUME 10.8 fl (7.4-10.4); MONO % 9.6 % (1.7-9.3); PLATELET COUNT 194 K/mm3 (130-400); RED BLOOD COUNT 4.87 M/mm3 (4.20-5.60); REDCELL DISTRIBUTION WIDTH-CV 17.6 % (11.5-14.5)
[2018-11-25 13:49] LABS: ERYTHROCYTE SEDIMENTATION RATE 5 mm/hr (0-30)
[2018-11-25 13:53] LABS: ALBUMIN 3.4 gm/dL (3.5-5.0); BILIRUBIN,TOTAL 0.7 mg/dL (0.0-1.0); C-REACTIVE PROTEIN 0.6 mg/dL (0.0-0.9); CALCIUM 9.4 mg/dL (8.4-10.2); CREATININE, serum 0.75 (0.66-1.25); TOTAL PROTEIN 6.4 gm/dL (6.4-8.2)
== END ==
LOC: ZCOL.LAB 13:25
PROVIDERS: Internal Medicine
DX: E11.59 Type 2 diabetes mellitus with other circulatory complications (principal); I10 Essential (primary) hypertension; G93.41 Metabolic encephalopathy; I25.10 Atherosclerotic heart disease of native coronary artery without angina pectoris

== ENCOUNTER → 2019-05-05 | Outpatient (CLI) | payer MEDICARE, MEDICAID ==
[2019-05-05 20:59] LABS: COLLECTION METHOD CLEAN CATCH
[2019-05-05 21:20] LABS: MUCOUS Present /lpf; PH 6 (5-8); SQUAMOUS EPITHELIAL 0-2 /hpf; URINE APPEARANCE Cloudy; URINE BACTERIA Rare /hpf; URINE BILIRUBIN Negative (NEGATIVE); URINE BLOOD 1+ (NEGATIVE); URINE COLOR Yellow; URINE GLUCOSE Negative (NEGATIVE); URINE KETONE Negative (NEGATIVE); URINE LEUKOCYTE ESTERASE 3+ (NEGATIVE); URINE NITRATE Negative (NEGATIVE); URINE PROTEIN(semi-quant) Negative (NEGATIVE); URINE RBC 20-50 /hpf; URINE UROBILINOGEN Negative (NEGATIVE); URINE WBC >50 /hpf
== END ==
LOC: COL.LAB 19:06
PROVIDERS: Nurse Practitioner Family
DX: N39.0 Urinary tract infection, site not specified (principal); N30.01 Acute cystitis with hematuria; N40.0 Benign prostatic hyperplasia without lower urinary tract symptoms

== ENCOUNTER → 2019-07-12 | Outpatient (CLI) | payer MEDICARE, MEDICAID ==
[2019-07-12 09:06] LABS: BASO % 0.3 % (0.0-2.0); EOS # 0.3 (0.0-0.7); EOS % 3.1 % (0-4.0); GRAN # 6.3 (1.4-6.5); GRAN % 68.5 % (42.2-75.2); HEMOGLOBIN 10.1 g/dl (13.5-18.0); LYMPH # 1.6 (1.2-3.4); LYMPH % 17.2 % (20.0-51.0); MEAN CELL VOLUME 89 fl (80.0-100.0); MEAN CORPUSCULAR HEMOGLOBIN 29 pg (27.0-31.0); MEAN CORPUSCULAR HGB CONC 32 g/dl (33.0-37.0); MEAN PLATELET VOLUME 10.8 fl (7.4-10.4); MONO % 10.3 % (1.7-9.3); PLATELET COUNT 196 K/mm3 (130-400); RED BLOOD COUNT 3.55 M/mm3 (4.20-5.60); REDCELL DISTRIBUTION WIDTH-CV 14.2 % (11.5-14.5)
[2019-07-12 09:12] LABS: HEMATOCRIT 31.7 % (42.0-52.0)
== END ==
LOC: COL.LAB 08:48 → ZCOL.LAB 08:48
PROVIDERS: Family Medicine
DX: I10 Essential (primary) hypertension (principal); Z79.01 Long term (current) use of anticoagulants

== ENCOUNTER → 2019-07-13 | Outpatient (CLI) | payer MEDICARE, MEDICAID ==
[2019-07-13 11:40] LABS: BASO % 0.5 % (0.0-2.0); EOS # 0.3 (0.0-0.7); EOS % 3.3 % (0-4.0); GRAN # 5.8 (1.4-6.5); GRAN % 67.3 % (42.2-75.2); HEMOGLOBIN 10.5 g/dl (13.5-18.0); LYMPH # 1.5 (1.2-3.4); LYMPH % 17.7 % (20.0-51.0); MEAN CELL VOLUME 89 fl (80.0-100.0); MEAN CORPUSCULAR HEMOGLOBIN 29 pg (27.0-31.0); MEAN CORPUSCULAR HGB CONC 32 g/dl (33.0-37.0); MEAN PLATELET VOLUME 10.6 fl (7.4-10.4); MONO # 0.9 (0.1-0.6); MONO % 10.6 % (1.7-9.3); PLATELET COUNT 200 K/mm3 (130-400); RED BLOOD COUNT 3.68 M/mm3 (4.20-5.60); REDCELL DISTRIBUTION WIDTH-CV 14.3 % (11.5-14.5)
[2019-07-13 11:41] LABS: HEMATOCRIT 32.8 % (42.0-52.0)
== END ==
LOC: ZCOL.LAB 10:46
PROVIDERS: Internal Medicine
DX: D64.9 Anemia, unspecified (principal)

== ENCOUNTER → 2019-08-03 | Outpatient (CLI) | payer MEDICARE, MEDICAID ==
[2019-08-03 17:00] LABS: BASO % 0.4 % (0.0-2.0); EOS # 0.3 (0.0-0.7); EOS % 2.5 % (0-4.0); GRAN # 7.2 (1.4-6.5); GRAN % 70.5 % (42.2-75.2); HEMOGLOBIN 11.1 g/dl (13.5-18.0); LYMPH # 1.3 (1.2-3.4); LYMPH % 12.3 % (20.0-51.0); MEAN CELL VOLUME 88 fl (80.0-100.0); MEAN CORPUSCULAR HEMOGLOBIN 28 pg (27.0-31.0); MEAN CORPUSCULAR HGB CONC 32 g/dl (33.0-37.0); MEAN PLATELET VOLUME 10.2 fl (7.4-10.4); MONO # 1.4 (0.1-0.6); MONO % 13.7 % (1.7-9.3); PLATELET COUNT 236 K/mm3 (130-400); RED BLOOD COUNT 3.94 M/mm3 (4.20-5.60); REDCELL DISTRIBUTION WIDTH-CV 14.6 % (11.5-14.5)
[2019-08-03 17:02] LABS: HEMATOCRIT 34.6 % (42.0-52.0)
[2019-08-03 17:03] LABS: ALBUMIN 3.1 gm/dL (3.5-5.0); BILIRUBIN,TOTAL 0.5 mg/dL (0.0-1.0); C-REACTIVE PROTEIN 3.4 mg/dL (0.0-0.9); CALCIUM 8.9 mg/dL (8.4-10.2); CREATININE, serum 0.93 (0.66-1.25); POTASSIUM 4.1 mmol/L (3.4-5.0)
[2019-08-03 17:15] LABS: ERYTHROCYTE SEDIMENTATION RATE 13 mm/hr (0-30)
== END ==
LOC: ZCOL.LAB 15:21
PROVIDERS: Internal Medicine
DX: A41.9 Sepsis, unspecified organism (principal); I10 Essential (primary) hypertension

== ENCOUNTER → 2019-08-04 | Outpatient (CLI) | payer MEDICARE, MEDICAID | LOC: COL.RAD 12:52 | DX: S32.009A Unspecified fracture of unspecified lumbar vertebra, initial encounter for closed fracture (principal); I70.0 Atherosclerosis of aorta; K76.9 Liver disease, unspecified; N28.9 Disorder of kidney and ureter, unspecified; K66.1 Hemoperitoneum ==

== ENCOUNTER → 2019-09-17 | Outpatient (CLI) | payer MEDICARE, MEDICAID ==
[2019-09-17 18:57] LABS: BASO # 0.1 (0.0-0.2); BASO % 0.5 % (0.0-2.0); EOS # 0.2 (0.0-0.7); EOS % 2.5 % (0-4.0); GRAN # 6.2 (1.4-6.5); GRAN % 65.5 % (42.2-75.2); HEMATOCRIT 37.4 % (42.0-52.0); HEMOGLOBIN 11.7 g/dl (13.5-18.0); LYMPH # 1.8 (1.2-3.4); LYMPH % 18.4 % (20.0-51.0); MEAN CELL VOLUME 88 fl (80.0-100.0); MEAN CORPUSCULAR HEMOGLOBIN 28 pg (27.0-31.0); MEAN CORPUSCULAR HGB CONC 31 g/dl (33.0-37.0); MEAN PLATELET VOLUME 10.9 fl (7.4-10.4); MONO # 1.2 (0.1-0.6); MONO % 12.4 % (1.7-9.3); PLATELET COUNT 210 K/mm3 (130-400); RED BLOOD COUNT 4.24 M/mm3 (4.20-5.60); REDCELL DISTRIBUTION WIDTH-CV 14.7 % (11.5-14.5)
== END ==
LOC: ZCOL.LAB 17:19
PROVIDERS: Internal Medicine
DX: D64.9 Anemia, unspecified (principal); E03.9 Hypothyroidism, unspecified

== ENCOUNTER → 2020-01-18 | Outpatient (CLI) | payer MEDICARE, MEDICAID | LOC: ZCOL.LAB 14:36 | DX: Z20.828 Contact with and (suspected) exposure to other viral communicable diseases (principal) ==

== ENCOUNTER 2020-02-09 18:44 | Emergency (ER) | payer MEDICARE, MEDICAID ==
[~2020-02-09] VITALS: Ht 193 cm; Wt 128.2 kg
[2020-02-09 18:46] VITALS: TEMP 98.3
[2020-02-09 19:38] LABS: BASO # 0.1 (0.0-0.2); BASO % 0.5 % (0.0-2.0); EOS # 0.1 (0.0-0.7); EOS % 1.2 % (0-4.0); GRAN # 6.8 (1.4-6.5); GRAN % 70.1 % (42.2-75.2); HEMATOCRIT 41.1 % (42.0-52.0); HEMOGLOBIN 13.2 g/dl (13.5-18.0); LYMPH # 1.5 (1.2-3.4); LYMPH % 15.1 % (20.0-51.0); MEAN CELL VOLUME 86 fl (80.0-100.0); MEAN CORPUSCULAR HEMOGLOBIN 28 pg (27.0-31.0); MEAN CORPUSCULAR HGB CONC 32 g/dl (33.0-37.0); MEAN PLATELET VOLUME 10.5 fl (7.4-10.4); MONO # 1.2 (0.1-0.6); MONO % 12.6 % (1.7-9.3); PLATELET COUNT 169 K/mm3 (130-400); RED BLOOD COUNT 4.78 M/mm3 (4.20-5.60); REDCELL DISTRIBUTION WIDTH-CV 14.6 % (11.5-14.5)
[2020-02-09 19:44] LABS: INR 3.5 (0.8-3.0); PROTHROMBIN TIME 39.4 SECONDS (9.7-12.8)
[2020-02-09 20:16] VITALS: BP 143/68; PULSE 77
== END 2020-02-09 21:00 | disposition home or self-care (01) ==
LOC: COL.ER 18:44
PROVIDERS: Family Medicine
DX: S01.81XA Laceration without foreign body of other part of head, initial encounter (principal); S61.412A Laceration without foreign body of left hand, initial encounter; S51.012A Laceration without foreign body of left elbow, initial encounter; S51.011A Laceration without foreign body of right elbow, initial encounter; R40.2412 Glasgow coma scale score 13-15, at arrival to emergency department; Z79.01 Long term (current) use of anticoagulants; Z23 Encounter for immunization; W07.XXXA Fall from chair, initial encounter

== ENCOUNTER → 2020-04-09 | Outpatient (CLI) | payer MEDICARE, MEDICAID | LOC: ZCOL.LAB 20:46 | DX: E11.59 Type 2 diabetes mellitus with other circulatory complications (principal) ==